=== PATIENT | male | born 1940 | race African-American/Black ===

== ENCOUNTER 2017-02-27 02:44 | Inpatient (IN) | payer MEDICARE, MEDICAID ==
[~2017-02-27] VITALS: Ht 185.4 cm; Wt 87.1 kg
[2017-02-27] VITALS (53 sets, daily range): BP systolic 84–146; BP diastolic 45–101
[~2017-02-27 02:44] MED LIST: ASPI-1159 PO; NEBI20TA2 PO; SIMV10TA6 PO
[2017-02-27] MEDS ORDERED: SODIUM CHLORIDE 0.9% 1,000 ML IV ONE ×3 (03:26→06:13)
[2017-02-27] MEDS ORDERED: IPRATROPIUM BROMIDE (0.02%) 0.5MG/2.5ML NEB HHN STA (03:26)
[2017-02-27] MEDS ORDERED: METHYLPREDNISOLONE SOD SUCC 125 MG/2 ML VIAL IV STA (03:26)
[2017-02-27] MEDS ORDERED: ALBUTEROL (0.083%) 2.5MG/3ML NEB HHN STA (03:26)
[2017-02-27] MEDS ORDERED: AZITHROMYCIN 500 MG in DEXT 5% WATER 250 ML IV ONE (03:30)
[2017-02-27] MEDS ORDERED: CEFTRIAXONE 1 G PREMIX 50 ML IV ONE (03:30)
[2017-02-27 03:49] LABS: BASOPHILS % 0.3 % (0.0-2.0); HEMATOCRIT. 48.7 % (42.0-52.0); HEMOGLOBIN. 15.6 g/dL (14.0-18.0); LYMPHOCYTES % 22.1 % (20.0-50.0); MEAN CORPUSCULAR HEMOGLOBIN 29.1 pg (28.0-32.0); MEAN CORPUSCULAR VOLUME 90.4 fL (80.0-94.0); MEAN PLATELET VOLUME 9.1 fl (7.4-10.4); MONOCYTES % 12.1 % (2.0-8.0); NEUTROPHILS % 65.5 % (40.0-76.0); PLATELET 182 x1000/uL (130-400); RED BLOOD CELL COUNT 5.38 mill/uL (4.7-6.1); RED CELL DISTRIBUTION WIDTH 15.6 % (11.6-14.6)
[2017-02-27] MEDS ORDERED: ALBUTEROL (0.5%) 2.5MG/0.5ML NEB HHN ONE (03:49)
[2017-02-27] MEDS: METHYLPREDNISOLONE SOD SUCC 125 MG/2 ML VIAL IV SCH ×4 (04:00→21:08)
[2017-02-27 04:08] LABS: BG BASE EXCESS -0.2 mmol/L (-2.0-2.0); BG CARBOXYHEMOGLOBIN 1.7 % (0.5-1.5); BG FRACTION INSPIRED OXYGEN 40; BG HCO3 ACT 35.4 mmol/L (22.0-26.0); BG METHEMOGLOBIN 0.7 % (0.0-1.5); BG OXYGEN SATURATION 96.9 % (92.0-98.5); BG OXYHEMOGLOBIN 94.6 % (94.0-97.0); BG PCO2 131.6 mmHg (35.0-45.0); BG PH 7.048 (7.350-7.450); BG PO2 128.5 mmHg (75.0-100.0); BG SAMPLE SITE RIGHT RADIAL; BG TOTAL HEMOGLOBIN 16.3 g/dL (12.0-18.0); BG VENT MODE NASAL CANNULA
[2017-02-27 04:09] LABS: CHLORIDE 99 mEq/L (98-107)
[2017-02-27] MEDS ORDERED: ETOMIDATE 2MG/ML 10ML VIAL IV ONE ×2 (04:45→06:00)
[2017-02-27] MEDS ORDERED: SUCCINYLCHOLINE CHLORIDE 200MG/10ML IV ONE ×2 (04:45→06:00)
[2017-02-27] MEDS ORDERED: PROPOFOL 10MG/ML 100ML 100 ML IV ONE (04:45)
[2017-02-27 05:06] LABS: CLARITY URINE CLOUDY (CLEAR); COLOR URINE YELLOW (YELLOW); KETONES URINE NEGATIVE (NEGATIVE); LEUKOCYTE ESTERASE URINE NEGATIVE (NEGATIVE); NITRITE URINE NEGATIVE (NEGATIVE); OCCULT BLOOD URINE 1+ (NEGATIVE); PROTEIN URINE 2+ (NEGATIVE); SPECIFIC GRAVITY URINE 1.019 (1.005-1.030)
[2017-02-27 05:27] LABS: BG BASE EXCESS 1.1 mmol/L (-2.0-2.0); BG CARBOXYHEMOGLOBIN 1.3 % (0.5-1.5); BG DEOXYHEMOGLOBIN 3.1 % (0.0-5.0); BG FRACTION INSPIRED OXYGEN 50; BG HCO3 ACT 30.9 mmol/L (22.0-26.0); BG METHEMOGLOBIN 0.5 % (0.0-1.5); BG OXYGEN SATURATION 96.8 % (92.0-98.5); BG OXYHEMOGLOBIN 95.1 % (94.0-97.0); BG PCO2 72.8 mmHg (35.0-45.0); BG PH 7.246 (7.350-7.450); BG PO2 106.6 mmHg (75.0-100.0); BG SAMPLE SITE RIGHT FEMORAL; BG TIDAL VOLUME(mL) 500 mL; BG TOTAL HEMOGLOBIN 15.9 g/dL (12.0-18.0); BG VENT MODE VENT - A/C; BG VENT RATE 18 set
[2017-02-27] MEDS ORDERED: PHENYLEPHRINE 10 MG in DEXT 5% WATER 249 ML IV STA ×2 (06:13→06:29)
[2017-02-27] MEDS ORDERED: PHENYLEPHRINE 10 MG in SODIUM CHLORIDE 0.9% 249 ML IV ONE (06:45)
[2017-02-27] MEDS ORDERED: SODIUM CHLORIDE 0.9% IV ONE (06:45)
[2017-02-27] MEDS ORDERED: PHENYLEPHRINE IV ONE (06:45)
[2017-02-27] MEDS ORDERED: CLONIDINE 0.1MG TABLET PO PRN (07:45)
[2017-02-27] MEDS ORDERED: ONDANSETRON HCL 4MG/2ML INJ IV PRN (07:45)
[2017-02-27] MEDS ORDERED: DIPHENHYDRAMINE 50MG/ML VIAL IV PRN (07:45)
[2017-02-27] MEDS ORDERED: MAGNESIUM/ALUMINUM HYDROXIDE/SIMETHICONE 30ML UDC PO PRN (07:45)
[2017-02-27] MEDS ORDERED: NA PHOS,M-B/NA PHOS,DI-BA ENEMA 118ML PR PRN (07:45)
[2017-02-27] MEDS ORDERED: AZITHROMYCIN 500 MG in DEXT 5% WATER 250 ML IV SCH (07:45)
[2017-02-27] MEDS ORDERED: IPRATROPIUM/ALBUTEROL 0.5-3(2.5)MG/3ML NEB INH PRN (07:45)
[2017-02-27] MEDS ORDERED: LORAZEPAM 2MG/ML CPJ IV PRN (07:45)
[2017-02-27] MEDS ORDERED: DOCUSATE SODIUM 100MG CAPSULE PO PRN (07:45)
[2017-02-27] MEDS ORDERED: ACETAMINOPHEN 325MG TABLET PO PRN (07:45)
[2017-02-27] MEDS ORDERED: CEFTRIAXONE 1 G PREMIX 50 ML IV SCH (09:00)
[2017-02-27] MEDS ORDERED: PHENYLEPHRINE 10 MG in SODIUM CHLORIDE 0.9% 249 ML IV NR (09:30)
[2017-02-27] MEDS ORDERED: PROPOFOL 10MG/ML 100ML 100 ML IV PRN (09:45)
[2017-02-27] MEDS ORDERED: ASPIRIN 325MG EC TABLET PO SCH (10:15)
[2017-02-27] MEDS ORDERED: DEXT 5%/LACTATED RINGERS 1,000 ML IV SCH (10:35)
[2017-02-27] MEDS ORDERED: ENOXAPARIN 80MG/0.8ML SYR SUBCUT SCH (10:45)
[2017-02-27 11:24] LABS: *AMPHETAMINES SCREEN URINE NEGATIVE (NEGATIVE); *BARBITURATES SCREEN URINE NEGATIVE (NEGATIVE); *BENZODIAZEPINES SCREEN URINE NEGATIVE (NEGATIVE); *COCAINE SCREEN URINE NEGATIVE (NEGATIVE); CANNABINOID URINE SCREEN NEGATIVE (NEGATIVE); METHADONE URINE SCREEN NEGATIVE (NEGATIVE); OPIATES URINE SCREEN NEGATIVE (NEGATIVE); PHENCYCLIDINE URINE SCREEN NEGATIVE (NEGATIVE)
[2017-02-27] MEDS: FAMOTIDINE 20MG/2ML VIAL IV SCH (11:29)
[2017-02-27] MEDS ORDERED: IPRATROPIUM/ALBUTEROL 0.5-3(2.5)MG/3ML NEB HHN SCH (12:00)
[2017-02-27] MEDS ORDERED: ACETAMINOPHEN 650MG/20.3ML UDC PO PRN (13:00)
[2017-02-27] MEDS: ASPIRIN 325MG TABLET PO SCH (13:56)
[2017-02-27] MEDS ORDERED: PHENYLEPHRINE 10 MG in DEXT 5% WATER 249 ML IV PRN (14:00)
[2017-02-27 15:27] LABS: BASOPHILS % 0.3 % (0.0-2.0); HEMATOCRIT. 42.3 % (42.0-52.0); HEMOGLOBIN. 13.5 g/dL (14.0-18.0); LYMPHOCYTES % 9.9 % (20.0-50.0); MEAN CORPUSCULAR HEMOGLOBIN 28.5 pg (28.0-32.0); MEAN PLATELET VOLUME 9.2 fl (7.4-10.4); MONOCYTES % 3.7 % (2.0-8.0); NEUTROPHILS % 86.1 % (40.0-76.0); PLATELET 172 x1000/uL (130-400); RED BLOOD CELL COUNT 4.75 mill/uL (4.7-6.1); RED CELL DISTRIBUTION WIDTH 15.8 % (11.6-14.6)
[2017-02-27 15:31] LABS: BG BASE EXCESS 1.4 mmol/L (-2.0-2.0); BG CARBOXYHEMOGLOBIN 0.3 % (0.5-1.5); BG DEOXYHEMOGLOBIN 1.2 % (0.0-5.0); BG FRACTION INSPIRED OXYGEN 40; BG HCO3 ACT 24.3 mmol/L (22.0-26.0); BG METHEMOGLOBIN 0.3 % (0.0-1.5); BG OXYGEN SATURATION 98.8 % (92.0-98.5); BG OXYHEMOGLOBIN 98.2 % (94.0-97.0); BG PCO2 33.5 mmHg (35.0-45.0); BG PH 7.478 (7.350-7.450); BG PO2 130.9 mmHg (75.0-100.0); BG SAMPLE SITE RIGHT RADIAL; BG TIDAL VOLUME(mL) 550 mL; BG TOTAL HEMOGLOBIN 14.7 g/dL (12.0-18.0); BG VENT MODE VENT - A/C; BG VENT RATE 20 set
[2017-02-27 15:33] LABS: D-DIMER 1.43 mg/L FEU (<0.50); INR 1.1
[2017-02-27 15:47] LABS: CHLORIDE 107 mEq/L (98-107)
[2017-02-27 16:03] LABS: CREATINE KINASE 1272 IU/L (39-308); CREATINE KINASE MB FRACTION 21.7 ng/mL (0.5-3.6)
[2017-02-27] MEDS: DEXT 5%/0.45% NACL 1000ML 1,000 ML IV SCH (18:01)
[2017-02-27] MEDS: IPRATROPIUM/ALBUTEROL 0.5-3(2.5)MG/3ML NEB HHN SCH (20:38)
[2017-02-27] MEDS: ENOXAPARIN 80MG/0.8ML SYR SUBCUT SCH (21:06)
[2017-02-27] MEDS: ATORVASTATIN CALCIUM 40MG TABLET PO SCH (21:06)
[2017-02-28] VITALS (70 sets, daily range): BP systolic 92–138; BP diastolic 47–86
[2017-02-28 00:02] LABS: CREATINE KINASE MB FRACTION 22.9 ng/mL (0.5-3.6)
[2017-02-28] MEDS: IPRATROPIUM/ALBUTEROL 0.5-3(2.5)MG/3ML NEB HHN SCH ×6 (00:17→20:19)
[2017-02-28] MEDS: METHYLPREDNISOLONE SOD SUCC 125 MG/2 ML VIAL IV SCH (05:07)
[2017-02-28] MEDS: CEFTRIAXONE 1 G PREMIX 50 ML IV SCH (05:08)
[2017-02-28 06:06] LABS: BASOPHILS % 0.2 % (0.0-2.0); EOSINOPHILS % 0.1 % (0.0-5.0); HEMATOCRIT. 41.5 % (42.0-52.0); HEMOGLOBIN. 13.4 g/dL (14.0-18.0); LYMPHOCYTES % 10.6 % (20.0-50.0); MEAN CORPUSCULAR HEMOGLOBIN 28.6 pg (28.0-32.0); MEAN CORPUSCULAR VOLUME 88.8 fL (80.0-94.0); MEAN PLATELET VOLUME 9.4 fl (7.4-10.4); MONOCYTES % 5.3 % (2.0-8.0); NEUTROPHILS % 83.8 % (40.0-76.0); PLATELET 174 x1000/uL (130-400); RED BLOOD CELL COUNT 4.68 mill/uL (4.7-6.1); RED CELL DISTRIBUTION WIDTH 16.1 % (11.6-14.6)
[2017-02-28] MEDS: AZITHROMYCIN 500 MG in SODIUM CHLORIDE 0.9% 250 ML IV SCH (06:39)
[2017-02-28] MEDS: DEXT 5%/0.45% NACL 1000ML 1,000 ML IV SCH ×2 (06:39→18:58)
[2017-02-28 07:30] LABS: BG BASE EXCESS -0.6 mmol/L (-2.0-2.0); BG CARBOXYHEMOGLOBIN 0.3 % (0.5-1.5); BG DEOXYHEMOGLOBIN 3.8 % (0.0-5.0); BG HCO3 ACT 23.7 mmol/L (22.0-26.0); BG METHEMOGLOBIN 0.5 % (0.0-1.5); BG OXYGEN SATURATION 96.2 % (92.0-98.5); BG OXYHEMOGLOBIN 95.4 % (94.0-97.0); BG PCO2 38.4 mmHg (35.0-45.0); BG PH 7.409 (7.350-7.450); BG PO2 88.6 mmHg (75.0-100.0); BG SAMPLE SITE RIGHT RADIAL; BG TIDAL VOLUME(mL) 550 mL; BG TOTAL HEMOGLOBIN 14.5 g/dL (12.0-18.0); BG VENT MODE VENT - A/C; BG VENT RATE 20 set
[2017-02-28 08:19] LABS: CHLORIDE 105 mEq/L (98-107)
[2017-02-28] MEDS: ENOXAPARIN 80MG/0.8ML SYR SUBCUT SCH (08:51)
[2017-02-28] MEDS: FAMOTIDINE 20MG/2ML VIAL IV SCH ×2 (08:51→22:08)
[2017-02-28] MEDS: ASPIRIN 325MG TABLET PO SCH (08:51)
[2017-02-28] MEDS ORDERED: DEXTROSE 50% WATER 50ML SYRINGE IV PRN (09:15)
[2017-02-28] MEDS: BLOOD SUGAR DIAGNOSTIC STRIP TEST SCH ×3 (11:24→21:00)
[2017-02-28] MEDS: NEBIVOLOL HCL 5 MG TABLET PO SCH (11:37)
[2017-02-28] MEDS: INSULIN LISPRO 100 UNITS/ML SUBCUT SCH ×3 (11:40→21:00)
[2017-02-28 12:56] LABS: CREATINE KINASE 1991 IU/L (39-308)
[2017-02-28] MEDS ORDERED: MAGNESIUM 1 G PREMIX 100 ML IV NR (13:00)
[2017-02-28] MEDS: METHYLPREDNISOLONE SOD SUCC 40 MG/ML VIAL IV SCH ×2 (13:23→22:08)
[2017-02-28] MEDS: ACETYLCYSTEINE 200MG/ML 20% VIAL 4ML PO SCH ×2 (13:52→21:00)
[2017-02-28] MEDS ORDERED: IOHEXOL-350 100 ML BOTTLE ONE (14:41)
[2017-02-28] MEDS: PROPOFOL 10MG/ML 100ML 100 ML IV PRN (15:54)
[2017-02-28] MEDS: BUDESONIDE 0.5MG/2ML NEB HHN SCH (20:19)
[2017-02-28] MEDS: ATORVASTATIN CALCIUM 40MG TABLET PO SCH (22:08)
[2017-03-01] VITALS (82 sets, daily range): BP systolic 81–152; BP diastolic 50–104
[2017-03-01] MEDS: IPRATROPIUM/ALBUTEROL 0.5-3(2.5)MG/3ML NEB HHN SCH ×6 (00:53→20:17)
[2017-03-01] MEDS: PROPOFOL 10MG/ML 100ML 100 ML IV PRN (01:11)
[2017-03-01 05:46] LABS: HEMATOCRIT. 39.7 % (42.0-52.0); HEMOGLOBIN. 13.1 g/dL (14.0-18.0); MEAN CORPUSCULAR HEMOGLOBIN 29.1 pg (28.0-32.0); MEAN CORPUSCULAR VOLUME 88.5 fL (80.0-94.0); MEAN PLATELET VOLUME 9.3 fl (7.4-10.4); PLATELET 196 x1000/uL (130-400); RED BLOOD CELL COUNT 4.49 mill/uL (4.7-6.1); RED CELL DISTRIBUTION WIDTH 15.9 % (11.6-14.6)
[2017-03-01] MEDS: CEFTRIAXONE 1 G PREMIX 50 ML IV SCH (05:46)
[2017-03-01] MEDS: METHYLPREDNISOLONE SOD SUCC 40 MG/ML VIAL IV SCH ×3 (05:46→22:11)
[2017-03-01] MEDS: AZITHROMYCIN 500 MG in SODIUM CHLORIDE 0.9% 250 ML IV SCH (05:47)
[2017-03-01] MEDS: BLOOD SUGAR DIAGNOSTIC STRIP TEST SCH ×3 (06:15→17:26)
[2017-03-01] MEDS: INSULIN LISPRO 100 UNITS/ML SUBCUT SCH ×3 (06:17→17:00)
[2017-03-01 07:05] LABS: CHLORIDE 108 mEq/L (98-107); PHOSPHORUS 2.5 mg/dL (2.5-4.9)
[2017-03-01 08:28] LABS: BG BASE EXCESS -1.1 mmol/L (-2.0-2.0); BG DEOXYHEMOGLOBIN 2.4 % (0.0-5.0); BG FRACTION INSPIRED OXYGEN 40; BG HCO3 ACT 23.9 mmol/L (22.0-26.0); BG METHEMOGLOBIN 0.4 % (0.0-1.5); BG OXYGEN SATURATION 97.6 % (92.0-98.5); BG OXYHEMOGLOBIN 97.2 % (94.0-97.0); BG PCO2 41.3 mmHg (35.0-45.0); BG PH 7.381 (7.350-7.450); BG PO2 108.9 mmHg (75.0-100.0); BG SAMPLE SITE RIGHT RADIAL; BG TIDAL VOLUME(mL) 550 mL; BG TOTAL HEMOGLOBIN 13.9 g/dL (12.0-18.0); BG VENT MODE VENT - A/C; BG VENT RATE 16 set
[2017-03-01] MEDS: BUDESONIDE 0.5MG/2ML NEB HHN SCH ×2 (08:50→20:17)
[2017-03-01] MEDS: FAMOTIDINE 20MG/2ML VIAL IV SCH ×2 (09:25→20:29)
[2017-03-01] MEDS: NEBIVOLOL HCL 5 MG TABLET PO SCH (09:25)
[2017-03-01] MEDS: ASPIRIN 325MG TABLET PO SCH (09:26)
[2017-03-01] MEDS ORDERED: SODIUM CHLORIDE 0.9% 250 ML IV ONE (09:30)
[2017-03-01] MEDS ORDERED: POTASSIUM CHLORIDE 20MEQ/PACKET PO NR (09:45)
[2017-03-01 12:30] LABS: BG BASE EXCESS -1.4 mmol/L (-2.0-2.0); BG CARBOXYHEMOGLOBIN 0.3 % (0.5-1.5); BG DEOXYHEMOGLOBIN 4.8 % (0.0-5.0); BG FRACTION INSPIRED OXYGEN 40; BG HCO3 ACT 27.8 mmol/L (22.0-26.0); BG METHEMOGLOBIN 0.3 % (0.0-1.5); BG OXYGEN SATURATION 95.2 % (92.0-98.5); BG OXYHEMOGLOBIN 94.6 % (94.0-97.0); BG PCO2 66.8 mmHg (35.0-45.0); BG PH 7.237 (7.350-7.450); BG PO2 89.7 mmHg (75.0-100.0); BG PRESSURE SUPPORT 8; BG SAMPLE SITE RIGHT RADIAL; BG TOTAL HEMOGLOBIN 14.9 g/dL (12.0-18.0); BG VENT MODE VENT - CPAP
[2017-03-01 12:49] LABS: PLATELET ESTIMATE NORMAL
[2017-03-01] MEDS ORDERED: PROPOFOL 10MG/ML 100ML 100 ML IV PRN (14:15)
[2017-03-01] MEDS: ATORVASTATIN CALCIUM 40MG TABLET PO SCH (20:29)
[2017-03-01] MEDS: ACETYLCYSTEINE 100MG/ML 10% VIAL 4ML PO SCH (20:30)
[2017-03-02] VITALS (79 sets, daily range): BP systolic 95–148; BP diastolic 45–92
[2017-03-02] MEDS: IPRATROPIUM/ALBUTEROL 0.5-3(2.5)MG/3ML NEB HHN SCH ×6 (00:17→20:22)
[2017-03-02] MEDS: METHYLPREDNISOLONE SOD SUCC 40 MG/ML VIAL IV SCH ×3 (05:03→21:29)
[2017-03-02] MEDS: BLOOD SUGAR DIAGNOSTIC STRIP TEST SCH ×4 (05:12→18:00)
[2017-03-02] MEDS: INSULIN LISPRO 100 UNITS/ML SUBCUT SCH ×4 (05:12→18:00)
[2017-03-02] MEDS ORDERED: CEFTRIAXONE 1,000 MG in SODIUM CHLORIDE 0.9% 50 ML IV SCH (05:30)
[2017-03-02 06:17] LABS: HEMATOCRIT. 41.5 % (42.0-52.0); HEMOGLOBIN. 13.4 g/dL (14.0-18.0); MEAN CORPUSCULAR HEMOGLOBIN 28.8 pg (28.0-32.0); MEAN CORPUSCULAR VOLUME 88.9 fL (80.0-94.0); MEAN PLATELET VOLUME 9.2 fl (7.4-10.4); PLATELET 224 x1000/uL (130-400); RED BLOOD CELL COUNT 4.66 mill/uL (4.7-6.1)
[2017-03-02 06:42] LABS: CHLORIDE 110 mEq/L (98-107); PHOSPHORUS 2.5 mg/dL (2.5-4.9)
[2017-03-02] MEDS: BUDESONIDE 0.5MG/2ML NEB HHN SCH ×2 (07:15→20:22)
[2017-03-02] MEDS ORDERED: LIDOCAINE HCL 1% 20ML VIAL (Pyxis) INJ ONE ×2 (07:22→10:24)
[2017-03-02] MEDS ORDERED: IODIXANOL 320MG/ML 100 ML BOTTLE IV ONE (07:23)
[2017-03-02 07:36] LABS: BG BASE EXCESS 1.7 mmol/L (-2.0-2.0); BG DEOXYHEMOGLOBIN 4.9 % (0.0-5.0); BG FRACTION INSPIRED OXYGEN 40; BG HCO3 ACT 25.7 mmol/L (22.0-26.0); BG METHEMOGLOBIN 0.3 % (0.0-1.5); BG OXYGEN SATURATION 95.1 % (92.0-98.5); BG OXYHEMOGLOBIN 94.8 % (94.0-97.0); BG PCO2 38.6 mmHg (35.0-45.0); BG PH 7.442 (7.350-7.450); BG SAMPLE SITE RIGHT RADIAL; BG TIDAL VOLUME(mL) 550 mL; BG TOTAL HEMOGLOBIN 13.8 g/dL (12.0-18.0); BG VENT MODE VENT - A/C; BG VENT RATE 16 set
[2017-03-02] MEDS ORDERED: FENTANYL CITRATE/PF 50MCG/ML 2ML VIAL ONE (08:41)
[2017-03-02] MEDS ORDERED: MIDAZOLAM HCL 2 MG/2 ML VIAL ONE (08:41)
[2017-03-02] MEDS ORDERED: IOHEXOL-300 100 ML BOTTLE ONE (08:57)
[2017-03-02] MEDS: ACETYLCYSTEINE 100MG/ML 10% VIAL 4ML PO SCH (09:00)
[2017-03-02] MEDS: NEBIVOLOL HCL 5 MG TABLET PO SCH ×2 (09:00→11:05)
[2017-03-02] MEDS: ASPIRIN 81MG TABLET PO SCH (09:00)
[2017-03-02] MEDS: FAMOTIDINE 20MG/2ML VIAL IV SCH ×2 (09:00→11:06)
[2017-03-02] MEDS ORDERED: ASPIRIN 325MG TABLET ONE (09:15)
[2017-03-02] MEDS ORDERED: CLOPIDOGREL 75MG TABLET ONE (09:15)
[2017-03-02] MEDS ORDERED: ONDANSETRON HCL 4MG/2ML INJ IV PRN (09:45)
[2017-03-02] MEDS ORDERED: ACETAMINOPHEN 325MG TABLET PO PRN (09:45)
[2017-03-02] MEDS ORDERED: ATROPINE SULFATE 1MG/10ML SYR IV PRN (09:45)
[2017-03-02] MEDS ORDERED: SODIUM CHLORIDE 0.45% 1,000 ML IV ONE (10:30)
[2017-03-02] MEDS ORDERED: HEPARIN SODIUM 1,000 UNIT/1ML VIAL IV ONE (11:23)
[2017-03-02] MEDS: PROPOFOL 10MG/ML 100ML 100 ML IV PRN (12:03)
[2017-03-02 12:45] LABS: PLATELET ESTIMATE NORMAL
[2017-03-02] MEDS: ATORVASTATIN CALCIUM 40MG TABLET PO SCH (21:29)
[2017-03-03] VITALS (43 sets, daily range): BP systolic 91–131; BP diastolic 55–76
[2017-03-03] MEDS: BLOOD SUGAR DIAGNOSTIC STRIP TEST SCH ×4 (00:19→18:51)
[2017-03-03] MEDS: IPRATROPIUM/ALBUTEROL 0.5-3(2.5)MG/3ML NEB HHN SCH ×6 (00:24→20:02)
[2017-03-03] MEDS: METHYLPREDNISOLONE SOD SUCC 40 MG/ML VIAL IV SCH ×3 (05:21→21:10)
[2017-03-03] MEDS: INSULIN LISPRO 100 UNITS/ML SUBCUT SCH ×4 (05:34→18:00)
[2017-03-03 05:42] LABS: HEMATOCRIT. 41.5 % (42.0-52.0); MEAN CORPUSCULAR HEMOGLOBIN 28.1 pg (28.0-32.0); MEAN CORPUSCULAR VOLUME 89.5 fL (80.0-94.0); MEAN PLATELET VOLUME 9.1 fl (7.4-10.4); PLATELET 208 x1000/uL (130-400); RED BLOOD CELL COUNT 4.64 mill/uL (4.7-6.1); RED CELL DISTRIBUTION WIDTH 15.9 % (11.6-14.6)
[2017-03-03 06:04] LABS: CHLORIDE 110 mEq/L (98-107)
[2017-03-03] MEDS: PROPOFOL 10MG/ML 100ML 100 ML IV PRN (06:36)
[2017-03-03 07:11] LABS: PLATELET ESTIMATE NORMAL
[2017-03-03 08:17] LABS: BG BASE EXCESS 3.1 mmol/L (-2.0-2.0); BG CARBOXYHEMOGLOBIN 0.6 % (0.5-1.5); BG DEOXYHEMOGLOBIN 2.2 % (0.0-5.0); BG FRACTION INSPIRED OXYGEN 40; BG HCO3 ACT 30.4 mmol/L (22.0-26.0); BG METHEMOGLOBIN 0.4 % (0.0-1.5); BG OXYGEN SATURATION 97.8 % (92.0-98.5); BG OXYHEMOGLOBIN 96.8 % (94.0-97.0); BG PCO2 58.3 mmHg (35.0-45.0); BG PH 7.335 (7.350-7.450); BG PO2 108.6 mmHg (75.0-100.0); BG SAMPLE SITE RIGHT RADIAL; BG TIDAL VOLUME(mL) 550 mL; BG TOTAL HEMOGLOBIN 13.8 g/dL (12.0-18.0); BG VENT MODE VENT - A/C; BG VENT RATE 12 set
[2017-03-03] MEDS: BUDESONIDE 0.5MG/2ML NEB HHN SCH (09:32)
[2017-03-03] MEDS: CLOPIDOGREL 75MG TABLET PO SCH (10:17)
[2017-03-03] MEDS: ASPIRIN 81MG TABLET PO SCH (10:18)
[2017-03-03] MEDS: FAMOTIDINE 20MG/2ML VIAL IV SCH ×2 (10:18→21:10)
[2017-03-03 13:50] LABS: BG BASE EXCESS 1.4 mmol/L (-2.0-2.0); BG CARBOXYHEMOGLOBIN 0.5 % (0.5-1.5); BG FRACTION INSPIRED OXYGEN 35; BG HCO3 ACT 32.8 mmol/L (22.0-26.0); BG METHEMOGLOBIN 0.5 % (0.0-1.5); BG OXYGEN SATURATION 89.9 % (92.0-98.5); BG PCO2 87.5 mmHg (35.0-45.0); BG PH 7.192 (7.350-7.450); BG PO2 70.7 mmHg (75.0-100.0); BG PRESSURE SUPPORT 8; BG SAMPLE SITE RIGHT RADIAL; BG TOTAL HEMOGLOBIN 15.6 g/dL (12.0-18.0); BG VENT MODE VENT - CPAP
[2017-03-03] MEDS: METOCLOPRAMIDE HCL 10MG/2ML VIAL IV SCH ×2 (14:06→18:53)
[2017-03-03 16:11] LABS: BG BASE EXCESS 3.1 mmol/L (-2.0-2.0); BG CARBOXYHEMOGLOBIN 0.3 % (0.5-1.5); BG DEOXYHEMOGLOBIN 3.9 % (0.0-5.0); BG FRACTION INSPIRED OXYGEN 40; BG HCO3 ACT 31.2 mmol/L (22.0-26.0); BG METHEMOGLOBIN 0.5 % (0.0-1.5); BG OXYGEN SATURATION 96.1 % (92.0-98.5); BG OXYHEMOGLOBIN 95.3 % (94.0-97.0); BG PCO2 63.2 mmHg (35.0-45.0); BG PH 7.311 (7.350-7.450); BG PO2 88.5 mmHg (75.0-100.0); BG PRESSURE SUPPORT 10; BG SAMPLE SITE RIGHT RADIAL; BG TIDAL VOLUME(mL) 550 mL; BG TOTAL HEMOGLOBIN 14.4 g/dL (12.0-18.0); BG VENT MODE VENT - SIMV; BG VENT RATE 10 set
[2017-03-03] MEDS: ATORVASTATIN CALCIUM 40MG TABLET PO SCH (21:10)
[2017-03-04] VITALS (50 sets, daily range): BP systolic 90–144; BP diastolic 58–79
[2017-03-04] MEDS: BLOOD SUGAR DIAGNOSTIC STRIP TEST SCH ×5 (00:30→23:11)
[2017-03-04] MEDS: METOCLOPRAMIDE HCL 10MG/2ML VIAL IV SCH ×5 (00:33→23:10)
[2017-03-04] MEDS: IPRATROPIUM/ALBUTEROL 0.5-3(2.5)MG/3ML NEB HHN SCH ×6 (04:11→20:51)
[2017-03-04 05:55] LABS: HEMOGLOBIN. 13.7 g/dL (14.0-18.0); MEAN CORPUSCULAR HEMOGLOBIN 28.5 pg (28.0-32.0); MEAN CORPUSCULAR VOLUME 89.4 fL (80.0-94.0); MEAN PLATELET VOLUME 9.1 fl (7.4-10.4); PLATELET 223 x1000/uL (130-400); RED CELL DISTRIBUTION WIDTH 15.8 % (11.6-14.6)
[2017-03-04] MEDS: INSULIN LISPRO 100 UNITS/ML SUBCUT SCH ×5 (06:00→23:11)
[2017-03-04] MEDS: METHYLPREDNISOLONE SOD SUCC 40 MG/ML VIAL IV SCH ×3 (06:00→21:15)
[2017-03-04 06:34] LABS: CHLORIDE 110 mEq/L (98-107); PHOSPHORUS 3.2 mg/dL (2.5-4.9)
[2017-03-04 07:41] LABS: BG BASE EXCESS 2.4 mmol/L (-2.0-2.0); BG CARBOXYHEMOGLOBIN 0.5 % (0.5-1.5); BG DEOXYHEMOGLOBIN 2.9 % (0.0-5.0); BG HCO3 ACT 30.9 mmol/L (22.0-26.0); BG METHEMOGLOBIN 0.5 % (0.0-1.5); BG OXYGEN SATURATION 97.1 % (92.0-98.5); BG OXYHEMOGLOBIN 96.1 % (94.0-97.0); BG PCO2 65.6 mmHg (35.0-45.0); BG PH 7.291 (7.350-7.450); BG PO2 100.7 mmHg (75.0-100.0); BG SAMPLE SITE RIGHT RADIAL; BG TIDAL VOLUME(mL) 550 mL; BG TOTAL HEMOGLOBIN 14.5 g/dL (12.0-18.0); BG VENT MODE VENT - SIMV; BG VENT RATE 10 set
[2017-03-04] MEDS: NEBIVOLOL HCL 5 MG TABLET PO SCH (09:00)
[2017-03-04] MEDS: FAMOTIDINE 20MG/2ML VIAL IV SCH ×2 (09:30→20:18)
[2017-03-04] MEDS: CLOPIDOGREL 75MG TABLET PO SCH (09:30)
[2017-03-04] MEDS: ASPIRIN 81MG TABLET PO SCH (09:31)
[2017-03-04 10:41] LABS: PLATELET ESTIMATE NORMAL
[2017-03-04 14:10] LABS: BG BASE EXCESS 3.1 mmol/L (-2.0-2.0); BG DEOXYHEMOGLOBIN 4.9 % (0.0-5.0); BG HCO3 ACT 33.1 mmol/L (22.0-26.0); BG METHEMOGLOBIN 0.3 % (0.0-1.5); BG OXYGEN SATURATION 95.1 % (92.0-98.5); BG OXYHEMOGLOBIN 94.8 % (94.0-97.0); BG PCO2 77.1 mmHg (35.0-45.0); BG PO2 84.4 mmHg (75.0-100.0); BG SAMPLE SITE RIGHT RADIAL; BG TIDAL VOLUME(mL) 550 mL; BG TOTAL HEMOGLOBIN 14.8 g/dL (12.0-18.0); BG VENT MODE VENT - SIMV; BG VENT RATE 6 set
[2017-03-04] MEDS: THEOPHYLLINE ANHYDROUS 80 MG/15 ML 120ML PO SCH ×2 (14:38→21:16)
[2017-03-04] MEDS ORDERED: PROPOFOL 10MG/ML 100ML 100 ML IV PRN (14:45)
[2017-03-04 17:03] LABS: BG BASE EXCESS 3.8 mmol/L (-2.0-2.0); BG CARBOXYHEMOGLOBIN 0.4 % (0.5-1.5); BG DEOXYHEMOGLOBIN 0.8 % (0.0-5.0); BG HCO3 ACT 30.6 mmol/L (22.0-26.0); BG METHEMOGLOBIN 0.5 % (0.0-1.5); BG OXYGEN SATURATION 99.2 % (92.0-98.5); BG OXYHEMOGLOBIN 98.3 % (94.0-97.0); BG PH 7.363 (7.350-7.450); BG PO2 183.8 mmHg (75.0-100.0); BG SAMPLE SITE RIGHT RADIAL; BG TIDAL VOLUME(mL) 550 mL; BG TOTAL HEMOGLOBIN 14.3 g/dL (12.0-18.0); BG VENT MODE VENT - A/C; BG VENT RATE 12 set
[2017-03-04] MEDS: ATORVASTATIN CALCIUM 40MG TABLET PO SCH (20:18)
[2017-03-05] VITALS (106 sets, daily range): BP systolic 73–177; BP diastolic 46–95
[2017-03-05] MEDS: IPRATROPIUM/ALBUTEROL 0.5-3(2.5)MG/3ML NEB HHN SCH ×6 (00:31→20:02)
[2017-03-05] MEDS: BLOOD SUGAR DIAGNOSTIC STRIP TEST SCH ×3 (05:33→17:52)
[2017-03-05] MEDS: INSULIN LISPRO 100 UNITS/ML SUBCUT SCH ×3 (05:33→17:52)
[2017-03-05] MEDS: THEOPHYLLINE ANHYDROUS 80 MG/15 ML 120ML PO SCH ×3 (05:33→22:00)
[2017-03-05] MEDS: METHYLPREDNISOLONE SOD SUCC 40 MG/ML VIAL IV SCH ×3 (05:33→21:33)
[2017-03-05] MEDS: METOCLOPRAMIDE HCL 10MG/2ML VIAL IV SCH ×3 (05:33→17:52)
[2017-03-05 06:04] LABS: HEMATOCRIT. 41.7 % (42.0-52.0); HEMOGLOBIN. 13.1 g/dL (14.0-18.0); MEAN CORPUSCULAR HEMOGLOBIN 28.3 pg (28.0-32.0); MEAN CORPUSCULAR VOLUME 89.8 fL (80.0-94.0); MEAN PLATELET VOLUME 9.2 fl (7.4-10.4); PLATELET 240 x1000/uL (130-400); RED BLOOD CELL COUNT 4.64 mill/uL (4.7-6.1); RED CELL DISTRIBUTION WIDTH 15.8 % (11.6-14.6)
[2017-03-05 06:51] LABS: CHLORIDE 109 mEq/L (98-107)
[2017-03-05 07:59] LABS: BG BASE EXCESS 2.5 mmol/L (-2.0-2.0); BG DEOXYHEMOGLOBIN 3.3 % (0.0-5.0); BG FRACTION INSPIRED OXYGEN 40; BG HCO3 ACT 28.5 mmol/L (22.0-26.0); BG METHEMOGLOBIN 0.2 % (0.0-1.5); BG OXYGEN SATURATION 96.7 % (92.0-98.5); BG OXYHEMOGLOBIN 96.5 % (94.0-97.0); BG PCO2 49.2 mmHg (35.0-45.0); BG PO2 89.3 mmHg (75.0-100.0); BG SAMPLE SITE RIGHT RADIAL; BG TIDAL VOLUME(mL) 550 mL; BG TOTAL HEMOGLOBIN 13.9 g/dL (12.0-18.0); BG VENT MODE VENT - A/C; BG VENT RATE 12 set
[2017-03-05] MEDS: FAMOTIDINE 20MG/2ML VIAL IV SCH ×2 (09:05→21:27)
[2017-03-05] MEDS: ASPIRIN 81MG TABLET PO SCH (09:05)
[2017-03-05] MEDS: NEBIVOLOL HCL 5 MG TABLET PO SCH (09:05)
[2017-03-05] MEDS: CLOPIDOGREL 75MG TABLET PO SCH (09:05)
[2017-03-05 09:28] LABS: PLATELET ESTIMATE NORMAL
[2017-03-05] MEDS: DOCUSATE SODIUM SUGAR FREE 100MG/10ML UDC PO PRN (10:34)
[2017-03-05 13:08] LABS: BG CARBOXYHEMOGLOBIN 0.4 % (0.5-1.5); BG FRACTION INSPIRED OXYGEN 40; BG HCO3 ACT 37.2 mmol/L (22.0-26.0); BG METHEMOGLOBIN 0.5 % (0.0-1.5); BG OXYGEN SATURATION 92.9 % (92.0-98.5); BG OXYHEMOGLOBIN 92.1 % (94.0-97.0); BG PCO2 104.8 mmHg (35.0-45.0); BG PH 7.168 (7.350-7.450); BG PO2 80.6 mmHg (75.0-100.0); BG PRESSURE SUPPORT 12; BG SAMPLE SITE RIGHT RADIAL; BG TIDAL VOLUME(mL) 550 mL; BG TOTAL HEMOGLOBIN 16.2 g/dL (12.0-18.0); BG VENT MODE VENT - SIMV; BG VENT RATE 6 set
[2017-03-05] MEDS ORDERED: PROPOFOL 10MG/ML 100ML 100 ML IV PRN (13:30)
[2017-03-05] MEDS: ATORVASTATIN CALCIUM 40MG TABLET PO SCH (21:28)
[2017-03-06] VITALS (87 sets, daily range): BP systolic 94–141; BP diastolic 48–114
[2017-03-06] MEDS: IPRATROPIUM/ALBUTEROL 0.5-3(2.5)MG/3ML NEB HHN SCH ×6 (00:25→20:26)
[2017-03-06] MEDS: METOCLOPRAMIDE HCL 10MG/2ML VIAL IV SCH ×5 (00:33→23:44)
[2017-03-06] MEDS: BLOOD SUGAR DIAGNOSTIC STRIP TEST SCH ×4 (00:38→23:51)
[2017-03-06] MEDS: INSULIN LISPRO 100 UNITS/ML SUBCUT SCH ×5 (06:00→23:51)
[2017-03-06] MEDS: THEOPHYLLINE ANHYDROUS 80 MG/15 ML 120ML PO SCH ×3 (06:35→21:31)
[2017-03-06] MEDS: METHYLPREDNISOLONE SOD SUCC 40 MG/ML VIAL IV SCH ×2 (06:35→17:31)
[2017-03-06 08:02] LABS: BG BASE EXCESS 10.1 mmol/L (-2.0-2.0); BG CARBOXYHEMOGLOBIN 0.1 % (0.5-1.5); BG DEOXYHEMOGLOBIN 2.7 % (0.0-5.0); BG FRACTION INSPIRED OXYGEN 40; BG HCO3 ACT 35.5 mmol/L (22.0-26.0); BG METHEMOGLOBIN 0.5 % (0.0-1.5); BG OXYGEN SATURATION 97.3 % (92.0-98.5); BG OXYHEMOGLOBIN 96.7 % (94.0-97.0); BG PCO2 50.3 mmHg (35.0-45.0); BG PH 7.466 (7.350-7.450); BG PO2 93.7 mmHg (75.0-100.0); BG SAMPLE SITE RIGHT RADIAL; BG TIDAL VOLUME(mL) 550 mL; BG TOTAL HEMOGLOBIN 13.8 g/dL (12.0-18.0); BG VENT MODE VENT - A/C; BG VENT RATE 14 set
[2017-03-06] MEDS: FAMOTIDINE 20MG/2ML VIAL IV SCH ×2 (08:34→21:31)
[2017-03-06] MEDS: ASPIRIN 81MG TABLET PO SCH (08:34)
[2017-03-06] MEDS: CLOPIDOGREL 75MG TABLET PO SCH (08:34)
[2017-03-06] MEDS: NEBIVOLOL HCL 5 MG TABLET PO SCH (08:35)
[2017-03-06] MEDS ORDERED: PROPOFOL 10MG/ML 100ML 100 ML IV PRN (09:29)
[2017-03-06 14:08] LABS: BG BASE EXCESS 9.7 mmol/L (-2.0-2.0); BG FRACTION INSPIRED OXYGEN 40; BG HCO3 ACT 37.4 mmol/L (22.0-26.0); BG METHEMOGLOBIN 0.5 % (0.0-1.5); BG OXYHEMOGLOBIN 96.5 % (94.0-97.0); BG PCO2 64.1 mmHg (35.0-45.0); BG PH 7.384 (7.350-7.450); BG PO2 96.7 mmHg (75.0-100.0); BG PRESSURE SUPPORT 12; BG SAMPLE SITE RIGHT BRACHIAL; BG TIDAL VOLUME(mL) 550 mL; BG TOTAL HEMOGLOBIN 14.3 g/dL (12.0-18.0); BG VENT MODE VENT - SIMV; BG VENT RATE 10 set
[2017-03-06] MEDS ORDERED: METHYLPREDNISOLONE SOD SUCC 125 MG/2 ML VIAL IV ONE (14:15)
[2017-03-06] MEDS ORDERED: METHYLPREDNISOLONE SOD SUCC 500 MG in SODIUM CHLORIDE 0.9% 100 ML IV NR (15:00)
[2017-03-06] MEDS ORDERED: GADOBENATE DIMEGLUMINE 529 MG/ML 10ML IV ONE (16:26)
[2017-03-06] MEDS: ATORVASTATIN CALCIUM 40MG TABLET PO SCH (21:31)
[2017-03-07] VITALS (55 sets, daily range): BP systolic 91–139; BP diastolic 32–87
[2017-03-07] MEDS: IPRATROPIUM/ALBUTEROL 0.5-3(2.5)MG/3ML NEB HHN SCH ×6 (00:10→20:42)
[2017-03-07 05:36] LABS: HEMATOCRIT. 44.1 % (42.0-52.0); HEMOGLOBIN. 13.8 g/dL (14.0-18.0); MEAN CORPUSCULAR HEMOGLOBIN 28.2 pg (28.0-32.0); MEAN CORPUSCULAR VOLUME 90.1 fL (80.0-94.0); MEAN PLATELET VOLUME 9.1 fl (7.4-10.4); PLATELET 247 x1000/uL (130-400); RED BLOOD CELL COUNT 4.89 mill/uL (4.7-6.1); RED CELL DISTRIBUTION WIDTH 16.1 % (11.6-14.6)
[2017-03-07] MEDS: THEOPHYLLINE ANHYDROUS 80 MG/15 ML 120ML PO SCH ×3 (06:13→21:18)
[2017-03-07] MEDS: METOCLOPRAMIDE HCL 10MG/2ML VIAL IV SCH ×3 (06:13→17:17)
[2017-03-07] MEDS: METHYLPREDNISOLONE SOD SUCC 40 MG/ML VIAL IV SCH ×2 (06:13→17:17)
[2017-03-07] MEDS: BLOOD SUGAR DIAGNOSTIC STRIP TEST SCH ×3 (06:14→18:00)
[2017-03-07] MEDS: INSULIN LISPRO 100 UNITS/ML SUBCUT SCH ×3 (06:14→18:00)
[2017-03-07 06:20] LABS: CHLORIDE 108 mEq/L (98-107); PHOSPHORUS 4.5 mg/dL (2.5-4.9)
[2017-03-07 07:52] LABS: BG BASE EXCESS 4.5 mmol/L (-2.0-2.0); BG CARBOXYHEMOGLOBIN 0.2 % (0.5-1.5); BG DEOXYHEMOGLOBIN 2.2 % (0.0-5.0); BG FRACTION INSPIRED OXYGEN 40; BG HCO3 ACT 31.9 mmol/L (22.0-26.0); BG OXYGEN SATURATION 97.8 % (92.0-98.5); BG OXYHEMOGLOBIN 97.6 % (94.0-97.0); BG PCO2 59.2 mmHg (35.0-45.0); BG PH 7.349 (7.350-7.450); BG PO2 117.5 mmHg (75.0-100.0); BG PRESSURE SUPPORT 12; BG SAMPLE SITE RIGHT BRACHIAL; BG TIDAL VOLUME(mL) 550 mL; BG TOTAL HEMOGLOBIN 14.5 g/dL (12.0-18.0); BG VENT MODE VENT - SIMV; BG VENT RATE 10 set
[2017-03-07 08:32] LABS: PLATELET ESTIMATE NORMAL
[2017-03-07] MEDS: FAMOTIDINE 20MG/2ML VIAL IV SCH ×2 (08:41→21:18)
[2017-03-07] MEDS: DOCUSATE SODIUM SUGAR FREE 100MG/10ML UDC PO PRN (08:41)
[2017-03-07] MEDS: ASPIRIN 81MG TABLET PO SCH (08:41)
[2017-03-07] MEDS: NEBIVOLOL HCL 5 MG TABLET PO SCH (08:42)
[2017-03-07] MEDS: CLOPIDOGREL 75MG TABLET PO SCH (08:42)
[2017-03-07 13:23] LABS: BG BASE EXCESS 8.4 mmol/L (-2.0-2.0); BG CARBOXYHEMOGLOBIN 0.3 % (0.5-1.5); BG DEOXYHEMOGLOBIN 4.8 % (0.0-5.0); BG HCO3 ACT 36.9 mmol/L (22.0-26.0); BG METHEMOGLOBIN 0.1 % (0.0-1.5); BG OXYGEN SATURATION 95.2 % (92.0-98.5); BG OXYHEMOGLOBIN 94.8 % (94.0-97.0); BG PCO2 69.2 mmHg (35.0-45.0); BG PH 7.345 (7.350-7.450); BG PO2 80.1 mmHg (75.0-100.0); BG SAMPLE SITE RIGHT RADIAL; BG TIDAL VOLUME(mL) 550 mL; BG TOTAL HEMOGLOBIN 14.5 g/dL (12.0-18.0); BG VENT MODE VENT - SIMV; BG VENT RATE 8 set
[2017-03-07] MEDS: GUAIFENESIN 200MG/10ML SUGAR FREE UDC PO PRN (16:43)
[2017-03-07] MEDS: MORPHINE SULFATE 4 MG/ML CPJ (NOT FOR IM USE) IV PRN (17:19)
[2017-03-07] MEDS: ATORVASTATIN CALCIUM 40MG TABLET PO SCH (21:18)
[2017-03-08] VITALS (49 sets, daily range): BP systolic 94–140; BP diastolic 50–79
[2017-03-08] MEDS: IPRATROPIUM/ALBUTEROL 0.5-3(2.5)MG/3ML NEB HHN SCH ×7 (00:16→23:58)
[2017-03-08] MEDS: BLOOD SUGAR DIAGNOSTIC STRIP TEST SCH ×5 (00:26→23:27)
[2017-03-08] MEDS: METOCLOPRAMIDE HCL 10MG/2ML VIAL IV SCH ×6 (02:23→23:27)
[2017-03-08 05:43] LABS: HEMOGLOBIN. 14.8 g/dL (14.0-18.0); MEAN CORPUSCULAR HEMOGLOBIN 28.3 pg (28.0-32.0); MEAN CORPUSCULAR VOLUME 90.2 fL (80.0-94.0); MEAN PLATELET VOLUME 9.5 fl (7.4-10.4); PLATELET 254 x1000/uL (130-400); RED BLOOD CELL COUNT 5.21 mill/uL (4.7-6.1); RED CELL DISTRIBUTION WIDTH 15.8 % (11.6-14.6)
[2017-03-08] MEDS: INSULIN LISPRO 100 UNITS/ML SUBCUT SCH ×5 (06:00→23:27)
[2017-03-08] MEDS: METHYLPREDNISOLONE SOD SUCC 40 MG/ML VIAL IV SCH ×2 (06:09→17:38)
[2017-03-08] MEDS: THEOPHYLLINE ANHYDROUS 80 MG/15 ML 120ML PO SCH ×3 (06:09→21:06)
[2017-03-08 06:23] LABS: CHLORIDE 105 mEq/L (98-107); THEOPHYLLINE 7.5 ug/mL (10-20)
[2017-03-08 06:58] LABS: BG BASE EXCESS 10.6 mmol/L (-2.0-2.0); BG CARBOXYHEMOGLOBIN 0.5 % (0.5-1.5); BG DEOXYHEMOGLOBIN 3.2 % (0.0-5.0); BG HCO3 ACT 40.1 mmol/L (22.0-26.0); BG METHEMOGLOBIN 0.3 % (0.0-1.5); BG OXYGEN SATURATION 96.8 % (92.0-98.5); BG PCO2 76.2 mmHg (35.0-45.0); BG PH 7.339 (7.350-7.450); BG PO2 90.9 mmHg (75.0-100.0); BG SAMPLE SITE RIGHT RADIAL; BG TIDAL VOLUME(mL) 550 mL; BG TOTAL HEMOGLOBIN 15.4 g/dL (12.0-18.0); BG VENT MODE VENT - SIMV; BG VENT RATE 8 set
[2017-03-08 07:41] LABS: PLATELET ESTIMATE NORMAL
[2017-03-08] MEDS: NEBIVOLOL HCL 5 MG TABLET PO SCH (08:36)
[2017-03-08] MEDS: ASPIRIN 81MG TABLET PO SCH (08:43)
[2017-03-08] MEDS: CLOPIDOGREL 75MG TABLET PO SCH (08:43)
[2017-03-08] MEDS: FAMOTIDINE 20MG/2ML VIAL IV SCH ×2 (08:43→21:06)
[2017-03-08] MEDS: DOCUSATE SODIUM SUGAR FREE 100MG/10ML UDC PO PRN (08:43)
[2017-03-08] MEDS: MORPHINE SULFATE 4 MG/ML CPJ (NOT FOR IM USE) IV PRN (17:38)
[2017-03-08] MEDS: ATORVASTATIN CALCIUM 40MG TABLET PO SCH (21:05)
[2017-03-09] VITALS (45 sets, daily range): BP systolic 68–134; BP diastolic 38–82
[2017-03-09] MEDS: IPRATROPIUM/ALBUTEROL 0.5-3(2.5)MG/3ML NEB HHN SCH ×5 (03:56→20:21)
[2017-03-09 05:32] LABS: CHLORIDE 105 mEq/L (98-107)
[2017-03-09] MEDS: METOCLOPRAMIDE HCL 10MG/2ML VIAL IV SCH ×3 (05:39→18:01)
[2017-03-09] MEDS: METHYLPREDNISOLONE SOD SUCC 40 MG/ML VIAL IV SCH ×2 (05:39→18:01)
[2017-03-09] MEDS: INSULIN LISPRO 100 UNITS/ML SUBCUT SCH ×4 (05:40→23:57)
[2017-03-09] MEDS: BLOOD SUGAR DIAGNOSTIC STRIP TEST SCH ×4 (05:40→23:57)
[2017-03-09] MEDS: THEOPHYLLINE ANHYDROUS 80 MG/15 ML 120ML PO SCH ×3 (05:40→21:09)
[2017-03-09 05:44] LABS: HEMATOCRIT. 43.7 % (42.0-52.0); MEAN CORPUSCULAR HEMOGLOBIN 28.9 pg (28.0-32.0); MEAN CORPUSCULAR VOLUME 89.9 fL (80.0-94.0); MEAN PLATELET VOLUME 9.3 fl (7.4-10.4); PLATELET 208 x1000/uL (130-400); RED BLOOD CELL COUNT 4.86 mill/uL (4.7-6.1); RED CELL DISTRIBUTION WIDTH 15.9 % (11.6-14.6)
[2017-03-09 07:06] LABS: PLATELET ESTIMATE NORMAL
[2017-03-09] MEDS: FAMOTIDINE 20MG/2ML VIAL IV SCH ×2 (08:30→21:09)
[2017-03-09] MEDS: NEBIVOLOL HCL 5 MG TABLET PO SCH (08:30)
[2017-03-09] MEDS: CLOPIDOGREL 75MG TABLET PO SCH (08:30)
[2017-03-09] MEDS: ASPIRIN 81MG TABLET PO SCH (08:30)
[2017-03-09 08:59] LABS: BG BASE EXCESS 6.4 mmol/L (-2.0-2.0); BG CARBOXYHEMOGLOBIN 0.7 % (0.5-1.5); BG DEOXYHEMOGLOBIN 2.8 % (0.0-5.0); BG FRACTION INSPIRED OXYGEN 40; BG HCO3 ACT 34.1 mmol/L (22.0-26.0); BG METHEMOGLOBIN 0.4 % (0.0-1.5); BG OXYGEN SATURATION 97.2 % (92.0-98.5); BG OXYHEMOGLOBIN 96.1 % (94.0-97.0); BG PCO2 61.8 mmHg (35.0-45.0); BG PH 7.359 (7.350-7.450); BG PO2 98.2 mmHg (75.0-100.0); BG PRESSURE SUPPORT 12; BG SAMPLE SITE RIGHT RADIAL; BG TIDAL VOLUME(mL) 550 mL; BG TOTAL HEMOGLOBIN 14.6 g/dL (12.0-18.0); BG VENT MODE VENT - SIMV; BG VENT RATE 10 set
[2017-03-09 14:35] LABS: BG BASE EXCESS 9.3 mmol/L (-2.0-2.0); BG CARBOXYHEMOGLOBIN 0.9 % (0.5-1.5); BG FRACTION INSPIRED OXYGEN 40; BG HCO3 ACT 38.9 mmol/L (22.0-26.0); BG METHEMOGLOBIN 0.5 % (0.0-1.5); BG OXYGEN SATURATION 95.9 % (92.0-98.5); BG OXYHEMOGLOBIN 94.6 % (94.0-97.0); BG PCO2 77.5 mmHg (35.0-45.0); BG PH 7.319 (7.350-7.450); BG PO2 86.6 mmHg (75.0-100.0); BG SAMPLE SITE RIGHT RADIAL; BG TIDAL VOLUME(mL) 550 mL; BG VENT MODE VENT - SIMV; BG VENT RATE 6 set
[2017-03-09] MEDS: ATORVASTATIN CALCIUM 40MG TABLET PO SCH (21:08)
[2017-03-10] VITALS (44 sets, daily range): BP systolic 82–152; BP diastolic 40–98
[2017-03-10] MEDS: METOCLOPRAMIDE HCL 10MG/2ML VIAL IV SCH ×4 (00:14→18:00)
[2017-03-10] MEDS: IPRATROPIUM/ALBUTEROL 0.5-3(2.5)MG/3ML NEB HHN SCH ×6 (00:30→20:53)
[2017-03-10] MEDS: MORPHINE SULFATE 4 MG/ML CPJ (NOT FOR IM USE) IV PRN (03:27)
[2017-03-10 05:32] LABS: HEMATOCRIT. 46.4 % (42.0-52.0); HEMOGLOBIN. 14.4 g/dL (14.0-18.0); MEAN CORPUSCULAR HEMOGLOBIN 28.1 pg (28.0-32.0); MEAN CORPUSCULAR VOLUME 90.6 fL (80.0-94.0); PLATELET 225 x1000/uL (130-400); RED BLOOD CELL COUNT 5.12 mill/uL (4.7-6.1); RED CELL DISTRIBUTION WIDTH 15.7 % (11.6-14.6)
[2017-03-10] MEDS ORDERED: PROPOFOL 10MG/ML 100ML 100 ML IV PRN (06:00)
[2017-03-10] MEDS: INSULIN LISPRO 100 UNITS/ML SUBCUT SCH ×3 (06:00→16:45)
[2017-03-10 06:23] LABS: CHLORIDE 104 mEq/L (98-107)
[2017-03-10] MEDS: METHYLPREDNISOLONE SOD SUCC 40 MG/ML VIAL IV SCH ×2 (06:44→18:08)
[2017-03-10] MEDS: THEOPHYLLINE ANHYDROUS 80 MG/15 ML 120ML PO SCH (06:46)
[2017-03-10] MEDS: BLOOD SUGAR DIAGNOSTIC STRIP TEST SCH ×3 (06:54→16:45)
[2017-03-10] MEDS: ASPIRIN 81MG TABLET PO SCH (08:13)
[2017-03-10] MEDS: CLOPIDOGREL 75MG TABLET PO SCH (08:13)
[2017-03-10] MEDS: FAMOTIDINE 20MG/2ML VIAL IV SCH ×2 (08:13→20:54)
[2017-03-10] MEDS: NEBIVOLOL HCL 5 MG TABLET PO SCH (08:14)
[2017-03-10 09:16] LABS: PLATELET ESTIMATE NORMAL
[2017-03-10 09:23] LABS: BG BASE EXCESS 14.2 mmol/L (-2.0-2.0); BG CARBOXYHEMOGLOBIN 0.5 % (0.5-1.5); BG DEOXYHEMOGLOBIN 1.6 % (0.0-5.0); BG FRACTION INSPIRED OXYGEN 40; BG HCO3 ACT 41.7 mmol/L (22.0-26.0); BG METHEMOGLOBIN 0.5 % (0.0-1.5); BG OXYGEN SATURATION 98.4 % (92.0-98.5); BG OXYHEMOGLOBIN 97.4 % (94.0-97.0); BG PCO2 61.7 mmHg (35.0-45.0); BG PH 7.448 (7.350-7.450); BG PO2 113.9 mmHg (75.0-100.0); BG SAMPLE SITE RIGHT RADIAL; BG TIDAL VOLUME(mL) 550 mL; BG TOTAL HEMOGLOBIN 16.4 g/dL (12.0-18.0); BG VENT MODE VENT - A/C; BG VENT RATE 12 set
[2017-03-10] MEDS ORDERED: LORAZEPAM 2MG/ML CPJ IV NR (10:15)
[2017-03-10 10:21] LABS: BG BASE EXCESS 12.6 mmol/L (-2.0-2.0); BG CARBOXYHEMOGLOBIN 0.4 % (0.5-1.5); BG DEOXYHEMOGLOBIN 4.1 % (0.0-5.0); BG FRACTION INSPIRED OXYGEN 45; BG HCO3 ACT 43.6 mmol/L (22.0-26.0); BG METHEMOGLOBIN 0.5 % (0.0-1.5); BG OXYGEN SATURATION 95.9 % (92.0-98.5); BG PCO2 88.3 mmHg (35.0-45.0); BG PH 7.311 (7.350-7.450); BG PO2 88.9 mmHg (75.0-100.0); BG PRESSURE SUPPORT 8; BG SAMPLE SITE RIGHT RADIAL; BG TOTAL HEMOGLOBIN 15.4 g/dL (12.0-18.0); BG VENT MODE VENT - CPAP
[2017-03-10] MEDS: QUETIAPINE FUMARATE 25MG TABLET PO SCH ×2 (10:43→20:54)
[2017-03-10] MEDS: DOCUSATE SODIUM SUGAR FREE 100MG/10ML UDC NG SCH (11:00)
[2017-03-10] MEDS: ATORVASTATIN CALCIUM 40MG TABLET PO SCH (20:54)
[2017-03-11] VITALS (45 sets, daily range): BP systolic 108–169; BP diastolic 49–98
[2017-03-11] MEDS: BLOOD SUGAR DIAGNOSTIC STRIP TEST SCH ×4 (00:23→18:00)
[2017-03-11] MEDS: IPRATROPIUM/ALBUTEROL 0.5-3(2.5)MG/3ML NEB HHN SCH ×6 (00:46→20:36)
[2017-03-11] MEDS: INSULIN LISPRO 100 UNITS/ML SUBCUT SCH ×4 (05:56→18:00)
[2017-03-11] MEDS: METOCLOPRAMIDE HCL 10MG/2ML VIAL IV SCH ×2 (06:00)
[2017-03-11] MEDS: METHYLPREDNISOLONE SOD SUCC 40 MG/ML VIAL IV SCH ×2 (06:03→19:01)
[2017-03-11 06:55] LABS: HEMATOCRIT. 47.7 % (42.0-52.0); HEMOGLOBIN. 14.9 g/dL (14.0-18.0); MEAN CORPUSCULAR HEMOGLOBIN 28.7 pg (28.0-32.0); MEAN CORPUSCULAR VOLUME 91.6 fL (80.0-94.0); MEAN PLATELET VOLUME 10.2 fl (7.4-10.4); PLATELET 203 x1000/uL (130-400); RED BLOOD CELL COUNT 5.21 mill/uL (4.7-6.1); RED CELL DISTRIBUTION WIDTH 15.4 % (11.6-14.6)
[2017-03-11 08:35] LABS: BG BASE EXCESS 13.5 mmol/L (-2.0-2.0); BG CARBOXYHEMOGLOBIN 0.9 % (0.5-1.5); BG DEOXYHEMOGLOBIN 5.1 % (0.0-5.0); BG FRACTION INSPIRED OXYGEN 28; BG HCO3 ACT 44.2 mmol/L (22.0-26.0); BG METHEMOGLOBIN 0.5 % (0.0-1.5); BG OXYGEN SATURATION 94.8 % (92.0-98.5); BG OXYHEMOGLOBIN 93.5 % (94.0-97.0); BG PCO2 85.5 mmHg (35.0-45.0); BG PH 7.331 (7.350-7.450); BG PO2 77.6 mmHg (75.0-100.0); BG SAMPLE SITE RIGHT BRACHIAL; BG TOTAL HEMOGLOBIN 15.7 g/dL (12.0-18.0); BG VENT MODE MASK - AEROSOL
[2017-03-11] MEDS: CLOPIDOGREL 75MG TABLET PO SCH (08:41)
[2017-03-11] MEDS: ASPIRIN 81MG TABLET PO SCH (08:41)
[2017-03-11] MEDS: DOCUSATE SODIUM SUGAR FREE 100MG/10ML UDC NG SCH (08:41)
[2017-03-11] MEDS: FAMOTIDINE 20MG/2ML VIAL IV SCH (08:41)
[2017-03-11] MEDS: NEBIVOLOL HCL 5 MG TABLET PO SCH (08:42)
[2017-03-11] MEDS: QUETIAPINE FUMARATE 25MG TABLET PO SCH ×2 (08:42→21:24)
[2017-03-11 10:17] LABS: CHLORIDE 108 mEq/L (98-107); PHOSPHORUS 3.7 mg/dL (2.5-4.9)
[2017-03-11 13:53] LABS: PLATELET ESTIMATE NORMAL
[2017-03-11 14:56] LABS: BG BASE EXCESS 13.7 mmol/L (-2.0-2.0); BG CARBOXYHEMOGLOBIN 0.6 % (0.5-1.5); BG DEOXYHEMOGLOBIN 9.3 % (0.0-5.0); BG FRACTION INSPIRED OXYGEN 28; BG HCO3 ACT 41.7 mmol/L (22.0-26.0); BG METHEMOGLOBIN 0.5 % (0.0-1.5); BG OXYGEN SATURATION 90.6 % (92.0-98.5); BG OXYHEMOGLOBIN 89.6 % (94.0-97.0); BG PH 7.425 (7.350-7.450); BG PO2 58.2 mmHg (75.0-100.0); BG SAMPLE SITE RIGHT BRACHIAL; BG TOTAL HEMOGLOBIN 15.9 g/dL (12.0-18.0); BG VENT MODE NASAL CANNULA
[2017-03-11] MEDS: ATORVASTATIN CALCIUM 40MG TABLET PO SCH (21:24)
[2017-03-12] VITALS (33 sets, daily range): BP systolic 92–180; BP diastolic 50–101
[2017-03-12] MEDS: IPRATROPIUM/ALBUTEROL 0.5-3(2.5)MG/3ML NEB HHN SCH ×6 (00:32→20:18)
[2017-03-12] MEDS: BLOOD SUGAR DIAGNOSTIC STRIP TEST SCH ×5 (00:51→23:15)
[2017-03-12 05:50] LABS: HEMATOCRIT. 47.8 % (42.0-52.0); MEAN CORPUSCULAR HEMOGLOBIN 28.4 pg (28.0-32.0); MEAN CORPUSCULAR VOLUME 90.7 fL (80.0-94.0); MEAN PLATELET VOLUME 10.3 fl (7.4-10.4); PLATELET 171 x1000/uL (130-400); RED BLOOD CELL COUNT 5.27 mill/uL (4.7-6.1); RED CELL DISTRIBUTION WIDTH 15.5 % (11.6-14.6)
[2017-03-12] MEDS: INSULIN LISPRO 100 UNITS/ML SUBCUT SCH ×5 (06:00→23:15)
[2017-03-12] MEDS: METHYLPREDNISOLONE SOD SUCC 40 MG/ML VIAL IV SCH ×2 (06:03→17:37)
[2017-03-12 06:17] LABS: CHLORIDE 106 mEq/L (98-107)
[2017-03-12] MEDS: NEBIVOLOL HCL 5 MG TABLET PO SCH (09:00)
[2017-03-12] MEDS: QUETIAPINE FUMARATE 25MG TABLET PO SCH ×2 (09:00→20:43)
[2017-03-12 09:05] LABS: BG CARBOXYHEMOGLOBIN 0.9 % (0.5-1.5); BG DEOXYHEMOGLOBIN 8.2 % (0.0-5.0); BG FRACTION INSPIRED OXYGEN 26; BG HCO3 ACT 47.9 mmol/L (22.0-26.0); BG METHEMOGLOBIN 0.4 % (0.0-1.5); BG OXYGEN SATURATION 91.7 % (92.0-98.5); BG OXYHEMOGLOBIN 90.5 % (94.0-97.0); BG PCO2 86.6 mmHg (35.0-45.0); BG PH 7.361 (7.350-7.450); BG PO2 66.2 mmHg (75.0-100.0); BG SAMPLE SITE RIGHT RADIAL; BG TOTAL HEMOGLOBIN 16.2 g/dL (12.0-18.0); BG VENT MODE NASAL CANNULA
[2017-03-12] MEDS: DOCUSATE SODIUM SUGAR FREE 100MG/10ML UDC NG SCH (09:17)
[2017-03-12] MEDS: ASPIRIN 81MG TABLET PO SCH (09:18)
[2017-03-12] MEDS: CLOPIDOGREL 75MG TABLET PO SCH (09:18)
[2017-03-12] MEDS ORDERED: DEXTROSE 5% WATER 1,000 ML IV ONE (10:30)
[2017-03-12 11:53] LABS: PLATELET ESTIMATE NORMAL
[2017-03-12 11:57] LABS: BG BASE EXCESS 10.1 mmol/L (-2.0-2.0); BG BILEVEL POS AIRWAY PRESSURE 15/5; BG CARBOXYHEMOGLOBIN 0.8 % (0.5-1.5); BG DEOXYHEMOGLOBIN 5.1 % (0.0-5.0); BG FRACTION INSPIRED OXYGEN 28; BG HCO3 ACT 37.7 mmol/L (22.0-26.0); BG METHEMOGLOBIN 0.4 % (0.0-1.5); BG OXYGEN SATURATION 94.8 % (92.0-98.5); BG OXYHEMOGLOBIN 93.7 % (94.0-97.0); BG PCO2 61.5 mmHg (35.0-45.0); BG PH 7.405 (7.350-7.450); BG SAMPLE SITE RIGHT RADIAL; BG VENT MODE MASK - BIPAP
[2017-03-12] MEDS: ATORVASTATIN CALCIUM 40MG TABLET PO SCH (20:43)
[2017-03-13] VITALS (25 sets, daily range): BP systolic 85–141; BP diastolic 26–99
[2017-03-13] MEDS: IPRATROPIUM/ALBUTEROL 0.5-3(2.5)MG/3ML NEB HHN SCH ×5 (00:13→21:01)
[2017-03-13] MEDS: METHYLPREDNISOLONE SOD SUCC 40 MG/ML VIAL IV SCH (05:38)
[2017-03-13 05:42] LABS: HEMATOCRIT. 47.7 % (42.0-52.0); HEMOGLOBIN. 14.8 g/dL (14.0-18.0); MEAN CORPUSCULAR HEMOGLOBIN 28.2 pg (28.0-32.0); MEAN CORPUSCULAR VOLUME 90.9 fL (80.0-94.0); MEAN PLATELET VOLUME 10.8 fl (7.4-10.4); PLATELET 168 x1000/uL (130-400); RED BLOOD CELL COUNT 5.25 mill/uL (4.7-6.1); RED CELL DISTRIBUTION WIDTH 15.8 % (11.6-14.6)
[2017-03-13] MEDS: INSULIN LISPRO 100 UNITS/ML SUBCUT SCH ×3 (06:00→17:43)
[2017-03-13] MEDS: BLOOD SUGAR DIAGNOSTIC STRIP TEST SCH ×3 (06:00→17:43)
[2017-03-13 06:21] LABS: CHLORIDE 106 mEq/L (98-107)
[2017-03-13 07:49] LABS: NUCLEATED RED BLOOD CELLS 1 /100 WBC
[2017-03-13 08:04] LABS: PLATELET ESTIMATE NORMAL
[2017-03-13] MEDS: QUETIAPINE FUMARATE 25MG TABLET PO SCH ×2 (08:19→21:05)
[2017-03-13] MEDS: CLOPIDOGREL 75MG TABLET PO SCH (08:19)
[2017-03-13] MEDS: DOCUSATE SODIUM SUGAR FREE 100MG/10ML UDC NG SCH (08:19)
[2017-03-13] MEDS: ASPIRIN 81MG TABLET PO SCH (08:19)
[2017-03-13 08:39] LABS: BG BASE EXCESS 13.3 mmol/L (-2.0-2.0); BG BILEVEL POS AIRWAY PRESSURE ST=15/5; BG CARBOXYHEMOGLOBIN 1.2 % (0.5-1.5); BG DEOXYHEMOGLOBIN 3.6 % (0.0-5.0); BG FRACTION INSPIRED OXYGEN 28; BG HCO3 ACT 40.3 mmol/L (22.0-26.0); BG METHEMOGLOBIN 0.4 % (0.0-1.5); BG OXYGEN SATURATION 96.3 % (92.0-98.5); BG OXYHEMOGLOBIN 94.8 % (94.0-97.0); BG PCO2 59.3 mmHg (35.0-45.0); BG PRESSURE SUPPORT 10; BG SAMPLE SITE LEFT RADIAL; BG TOTAL HEMOGLOBIN 15.6 g/dL (12.0-18.0); BG VENT MODE MASK - BIPAP; BG VENT RATE 18 set
[2017-03-13] MEDS ORDERED: BISACODYL 10MG SUPP PR PRN (11:30)
[2017-03-13] MEDS: BUDESONIDE 0.5MG/2ML NEB HHN SCH (12:04)
[2017-03-13] MEDS: PREDNISONE 20MG TABLET PO SCH (12:24)
[2017-03-13] MEDS: PANTOPRAZOLE SODIUM 40 MG/VIAL IV SCH (12:25)
[2017-03-13 20:12] LABS: VITAMIN B12 SERUM 1564 pg/mL (211-911)
[2017-03-13] MEDS: ATORVASTATIN CALCIUM 40MG TABLET PO SCH (21:05)
[2017-03-14] VITALS (30 sets, daily range): BP systolic 108–135; BP diastolic 48–81
[2017-03-14] MEDS: IPRATROPIUM/ALBUTEROL 0.5-3(2.5)MG/3ML NEB HHN SCH ×6 (00:35→20:57)
[2017-03-14] MEDS: BLOOD SUGAR DIAGNOSTIC STRIP TEST SCH ×5 (00:46→23:23)
[2017-03-14] MEDS: INSULIN LISPRO 100 UNITS/ML SUBCUT SCH ×5 (01:09→23:28)
[2017-03-14 05:32] LABS: HEMATOCRIT. 46.7 % (42.0-52.0); HEMOGLOBIN. 14.6 g/dL (14.0-18.0); MEAN CORPUSCULAR HEMOGLOBIN 28.1 pg (28.0-32.0); PLATELET 143 x1000/uL (130-400); RED BLOOD CELL COUNT 5.19 mill/uL (4.7-6.1); RED CELL DISTRIBUTION WIDTH 15.5 % (11.6-14.6)
[2017-03-14 06:18] LABS: CHLORIDE 101 mEq/L (98-107)
[2017-03-14 07:18] LABS: PLATELET ESTIMATE NORMAL
[2017-03-14 07:49] LABS: BG CARBOXYHEMOGLOBIN 0.8 % (0.5-1.5); BG DEOXYHEMOGLOBIN 2.4 % (0.0-5.0); BG HCO3 ACT 40.4 mmol/L (22.0-26.0); BG METHEMOGLOBIN 0.2 % (0.0-1.5); BG OXYGEN SATURATION 97.6 % (92.0-98.5); BG OXYHEMOGLOBIN 96.6 % (94.0-97.0); BG PCO2 68.4 mmHg (35.0-45.0); BG PH 7.389 (7.350-7.450); BG PO2 106.1 mmHg (75.0-100.0); BG SAMPLE SITE RIGHT RADIAL; BG TOTAL HEMOGLOBIN 15.4 g/dL (12.0-18.0); BG VENT MODE NASAL CANNULA
[2017-03-14] MEDS: PANTOPRAZOLE SODIUM 40 MG/VIAL IV SCH (08:38)
[2017-03-14] MEDS: DOCUSATE SODIUM SUGAR FREE 100MG/10ML UDC NG SCH (08:38)
[2017-03-14] MEDS: QUETIAPINE FUMARATE 25MG TABLET PO SCH ×2 (08:38→20:44)
[2017-03-14] MEDS: GUAIFENESIN 200MG/10ML SUGAR FREE UDC PO PRN ×2 (08:38→17:25)
[2017-03-14] MEDS: ASPIRIN 81MG TABLET PO SCH (08:39)
[2017-03-14] MEDS: PREDNISONE 20MG TABLET PO SCH ×2 (08:39→10:00)
[2017-03-14] MEDS: CLOPIDOGREL 75MG TABLET PO SCH (08:39)
[2017-03-14] MEDS: BUDESONIDE 0.5MG/2ML NEB HHN SCH ×2 (08:52→20:57)
[2017-03-14 10:12] LABS: AChR BLOCKING ABS SERUM 8 % (0-25)
[2017-03-14] MEDS: ATORVASTATIN CALCIUM 40MG TABLET PO SCH (20:44)
[2017-03-15] VITALS (19 sets, daily range): BP systolic 99–139; BP diastolic 49–85
[2017-03-15] MEDS: IPRATROPIUM/ALBUTEROL 0.5-3(2.5)MG/3ML NEB HHN SCH ×6 (00:55→20:38)
[2017-03-15] MEDS: BLOOD SUGAR DIAGNOSTIC STRIP TEST SCH ×4 (05:26→23:48)
[2017-03-15] MEDS: INSULIN LISPRO 100 UNITS/ML SUBCUT SCH ×4 (05:29→23:53)
[2017-03-15] MEDS: CLOPIDOGREL 75MG TABLET PO SCH (08:51)
[2017-03-15] MEDS: GUAIFENESIN 200MG/10ML SUGAR FREE UDC PO PRN (08:51)
[2017-03-15] MEDS: DOCUSATE SODIUM SUGAR FREE 100MG/10ML UDC NG SCH (08:51)
[2017-03-15] MEDS: QUETIAPINE FUMARATE 25MG TABLET PO SCH ×2 (08:52→20:44)
[2017-03-15] MEDS: ASPIRIN 81MG TABLET PO SCH (08:52)
[2017-03-15] MEDS: PREDNISONE 20MG TABLET PO SCH (08:52)
[2017-03-15] MEDS: PANTOPRAZOLE SODIUM 40 MG/VIAL IV SCH (09:02)
[2017-03-15] MEDS: BUDESONIDE 0.5MG/2ML NEB HHN SCH ×2 (09:21→20:39)
[2017-03-15 11:44] LABS: BG BASE EXCESS 10.9 mmol/L (-2.0-2.0); BG CARBOXYHEMOGLOBIN 1.1 % (0.5-1.5); BG DEOXYHEMOGLOBIN 3.6 % (0.0-5.0); BG HCO3 ACT 40.3 mmol/L (22.0-26.0); BG METHEMOGLOBIN 0.2 % (0.0-1.5); BG OXYGEN SATURATION 96.4 % (92.0-98.5); BG OXYHEMOGLOBIN 95.1 % (94.0-97.0); BG PCO2 75.7 mmHg (35.0-45.0); BG PH 7.344 (7.350-7.450); BG PO2 89.5 mmHg (75.0-100.0); BG SAMPLE SITE RIGHT RADIAL; BG TOTAL HEMOGLOBIN 15.1 g/dL (12.0-18.0); BG VENT MODE NASAL CANNULA
[2017-03-15] MEDS: ATORVASTATIN CALCIUM 40MG TABLET PO SCH (20:44)
[2017-03-16] VITALS (12 sets, daily range): BP systolic 98–137; BP diastolic 38–98
[2017-03-16] MEDS: IPRATROPIUM/ALBUTEROL 0.5-3(2.5)MG/3ML NEB HHN SCH ×6 (00:11→20:16)
[2017-03-16] MEDS: INSULIN LISPRO 100 UNITS/ML SUBCUT SCH ×3 (05:43→18:00)
[2017-03-16] MEDS: BLOOD SUGAR DIAGNOSTIC STRIP TEST SCH ×3 (05:43→18:00)
[2017-03-16 07:11] LABS: BASOPHILS % 0.3 % (0.0-2.0); EOSINOPHILS % 1.7 % (0.0-5.0); HEMATOCRIT. 42.6 % (42.0-52.0); HEMOGLOBIN. 13.7 g/dL (14.0-18.0); LYMPHOCYTES % 9.3 % (20.0-50.0); MEAN CORPUSCULAR VOLUME 89.9 fL (80.0-94.0); MEAN PLATELET VOLUME 11.1 fl (7.4-10.4); MONOCYTES % 5.3 % (2.0-8.0); NEUTROPHILS % 83.4 % (40.0-76.0); PLATELET 101 x1000/uL (130-400); RED BLOOD CELL COUNT 4.74 mill/uL (4.7-6.1); RED CELL DISTRIBUTION WIDTH 15.4 % (11.6-14.6)
[2017-03-16] MEDS: BUDESONIDE 0.5MG/2ML NEB HHN SCH (08:02)
[2017-03-16] MEDS: CLOPIDOGREL 75MG TABLET PO SCH (08:31)
[2017-03-16] MEDS: PANTOPRAZOLE SODIUM 40 MG/VIAL IV SCH (08:31)
[2017-03-16] MEDS: QUETIAPINE FUMARATE 25MG TABLET PO SCH ×2 (08:31→20:55)
[2017-03-16] MEDS: DOCUSATE SODIUM SUGAR FREE 100MG/10ML UDC NG SCH (08:31)
[2017-03-16] MEDS: ASPIRIN 81MG TABLET PO SCH (08:31)
[2017-03-16] MEDS: PREDNISONE 20MG TABLET PO SCH (08:31)
[2017-03-16 08:53] LABS: CHLORIDE 98 mEq/L (98-107)
[2017-03-16] MEDS: ATORVASTATIN CALCIUM 40MG TABLET PO SCH (20:55)
[2017-03-17] MEDS ORDERED: PREDNISONE 10MG TABLET PO SCH (09:00)
== END 2017-03-16 22:12 | DRG 853 ==
LOC: ER 02:54 → MICUNO 04:44 → EDBEDREQ 04:46 → EDBEDREQSVC 04:46 → SUPCPDRO 07:36 → ENRESERV 08:59 → MICUSO 03-14 03:26 → 5EST 03-14 18:30
PROVIDERS: ADMIT Internal Medicine; ATTEND Internal Medicine
PROC: 5A1955Z Respiratory Ventilation, Greater than 96 Consecutive Hours (ICD-10-PCS; principal; 2017-02-27)
PROC: 0BH17EZ Insertion of Endotracheal Airway into Trachea, Via Natural or Artificial Opening (ICD-10-PCS; 2017-02-27)
PROC: 02HV33Z Insertion of Infusion Device into Superior Vena Cava, Percutaneous Approach (ICD-10-PCS; 2017-03-02)
PROC: B548ZZA Ultrasonography of Superior Vena Cava, Guidance (ICD-10-PCS; 2017-03-02)
PROC: 027034Z Dilation of Coronary Artery, One Artery with Drug-eluting Intraluminal Device, Percutaneous Approach (ICD-10-PCS; 2017-03-02)
PROC: 4A023N7 Measurement of Cardiac Sampling and Pressure, Left Heart, Percutaneous Approach (ICD-10-PCS; 2017-03-02)
PROC: B2111ZZ Fluoroscopy of Multiple Coronary Arteries using Low Osmolar Contrast (ICD-10-PCS; 2017-03-02)
DX: A41.9 Sepsis, unspecified organism (principal); I21.4 Non-ST elevation (NSTEMI) myocardial infarction; J96.02 Acute respiratory failure with hypercapnia; J96.01 Acute respiratory failure with hypoxia; R65.21 Severe sepsis with septic shock; G93.40 Encephalopathy, unspecified; N17.0 Acute kidney failure with tubular necrosis; E44.0 Moderate protein-calorie malnutrition; I50.30 Unspecified diastolic (congestive) heart failure; I13.0 Hypertensive heart and chronic kidney disease with heart failure and stage 1 through stage 4 chronic kidney disease, or unspecified chronic kidney disease; J44.1 Chronic obstructive pulmonary disease with (acute) exacerbation; E87.0 Hyperosmolality and hypernatremia; E87.3 Alkalosis; N18.9 Chronic kidney disease, unspecified; D69.6 Thrombocytopenia, unspecified; E78.00 Pure hypercholesterolemia, unspecified; E78.5 Hyperlipidemia, unspecified; I25.10 Atherosclerotic heart disease of native coronary artery without angina pectoris; I49.3 Ventricular premature depolarization; R73.9 Hyperglycemia, unspecified; R26.9 Unspecified abnormalities of gait and mobility; I25.2 Old myocardial infarction; Z85.46 Personal history of malignant neoplasm of prostate; Z87.891 Personal history of nicotine dependence; Z95.5 Presence of coronary angioplasty implant and graft; Z79.82 Long term (current) use of aspirin; Z79.899 Other long term (current) drug therapy; Z68.25 Body mass index [BMI] 25.0-25.9, adult
CPT/HCPCS: 31500; 36415; 36556; 36569; 36600; 70553; 71045; 71275; 76770; 76937; 78580; 80048; 80061; 80198; 80305; 81001; 82140; 82375; 82550; 82553; 82607; 82805; 82962; 83036; 83519; 83605; 83735; 83880; 84100; 84443; 84478; 84484; 85347; 85379; 87070; 87804; 92610; 92928; 93005; 93306; 93454; 93922; 93970; 94002; 94003; 94640; 94644; 94660; 96365; 96366; 96367; 96368; 96375; 97116; 97163; 97167; 97530; 99291; A9577; C1725; C1760; C1769; C1887; C1893; C9113; J0330; J0456; J0696; J1200; J1644; J1650; J1815; J2060; J2250; J2270; J2370; J2704; J2765; J2920; J2930; J3010; J3475; J3490; J7030; J7040; J7042; J7050; J7060; J7070; J7512; J7608; J7611; J7620; J7626; Q9967; A4315

== ENCOUNTER 2020-08-29 12:37 | Inpatient (IN) | payer MEDICARE, MEDICAID ==
[~2020-08-29] VITALS: Ht 185.4 cm; Wt 84.9 kg
[~2020-08-29 12:37] MED LIST changes: -ASPI-1159 PO; +ASPI-1497 PO; -SIMV10TA6 PO; +SIMV10TA97 PO
[2020-08-29] MEDS ORDERED: METHYLPREDNISOLONE SOD SUCC 125 MG/2 ML VIAL IV STA (12:59)
[2020-08-29] MEDS ORDERED: IPRATROPIUM BROMIDE (0.02%) 0.5MG/2.5ML NEB HHN STA (12:59)
[2020-08-29] MEDS: ALBUTEROL (0.083%) 2.5MG/3ML NEB HHN SCH (13:10)
[2020-08-29 13:30] LABS: BG BASE EXCESS 4.9 mmol/L (-2.0-2.0); BG CARBOXYHEMOGLOBIN 0.3 % (0.5-1.5); BG DEOXYHEMOGLOBIN 1.2 % (0.0-5.0); BG HCO3 ACT 32.3 mmol/L (22.0-26.0); BG METHEMOGLOBIN 0.2 % (0.0-1.5); BG OXYGEN SATURATION 98.8 % (92.0-98.5); BG OXYHEMOGLOBIN 98.3 % (94.0-97.0); BG PH 7.335 (7.350-7.450); BG PO2 164.3 mmHg (75.0-100.0); BG SAMPLE SITE RIGHT RADIAL; BG TOTAL HEMOGLOBIN 12.2 g/dL (12.0-18.0); BG VENT MODE HHN NEBULIZER
[2020-08-29 13:50] LABS: BASOPHILS % 0.5 % (0.0-2.0); EOSINOPHILS % 1.8 % (0.0-5.0); HEMATOCRIT. 34.1 % (42.0-52.0); HEMOGLOBIN. 11.3 g/dL (14.0-18.0); LYMPHOCYTES % 13.6 % (20.0-50.0); MEAN CORPUSCULAR HEMOGLOBIN 29.2 pg (28.0-32.0); MEAN CORPUSCULAR VOLUME 88.3 fL (80.0-94.0); MEAN PLATELET VOLUME 8.8 fl (7.4-10.4); MONOCYTES % 10.8 % (2.0-8.0); NEUTROPHILS % 73.3 % (40.0-76.0); PLATELET 229 x1000/uL (130-400); RED BLOOD CELL COUNT 3.86 mill/uL (4.7-6.1); RED CELL DISTRIBUTION WIDTH 14.7 % (11.6-14.6)
[2020-08-29 13:55] LABS: CHLORIDE 107 mEq/L (98-107)
[2020-08-29] MEDS ORDERED: AZITHROMYCIN 500 MG in DEXT 5% WATER 250 ML IV SCH (16:00)
[2020-08-29] MEDS ORDERED: CEFTRIAXONE 1 G PREMIX 50 ML IV ONE (16:00)
[2020-08-29] MEDS ORDERED: ONDANSETRON HCL 4MG/2ML INJ IV PRN (20:45)
[2020-08-29] MEDS ORDERED: IPRATROPIUM/ALBUTEROL 0.5-3(2.5)MG/3ML NEB HHN PRN (20:45)
[2020-08-29] MEDS ORDERED: ZOLPIDEM TARTRATE 5MG TABLET PO PRN (20:45)
[2020-08-29] MEDS ORDERED: CLONIDINE 0.1MG TABLET PO PRN (20:45)
[2020-08-29] MEDS ORDERED: GUAIFENESIN 200MG/10ML SUGAR FREE UDC PO PRN (20:45)
[2020-08-29] MEDS ORDERED: MAGNESIUM/ALUMINUM HYDROXIDE/SIMETHICONE 30ML UDC PO PRN (20:45)
[2020-08-29] MEDS ORDERED: MAGNESIUM HYDROXIDE 400MG/5ML 30ML UDC PO PRN (20:45)
[2020-08-29] MEDS ORDERED: ACETAMINOPHEN 325MG TABLET PO PRN ×2 (20:45)
[2020-08-29] MEDS ORDERED: DIPHENHYDRAMINE 50MG/ML VIAL IV PRN (20:45)
[2020-08-29] MEDS ORDERED: ENOXAPARIN 30MG/0.3ML SYR SUBCUT SCH (21:00)
[2020-08-29] MEDS ORDERED: PROMETHAZINE/DEXTROMETHORPHAN 6.25-15MG/5ML BOTTLE 120ML PO PRN (21:00)
[2020-08-29] MEDS ORDERED: LEVOFLOXACIN 500MG PREMIX 100 ML IV SCH (21:00)
[2020-08-29] MEDS: FAMOTIDINE 20MG TABLET PO SCH (21:14)
[2020-08-29] MEDS: GUAIFENESIN 600MG ER TABLET PO SCH (21:15)
[2020-08-29] MEDS: ATORVASTATIN CALCIUM 20MG TABLET PO SCH (21:15)
[2020-08-29] MEDS: METHYLPREDNISOLONE SOD SUCC 125 MG/2 ML VIAL IV SCH (22:26)
[2020-08-29] MEDS: SODIUM CHLORIDE 0.9% INJ 3ML FLUSH IVF SCH (22:33)
[2020-08-29 23:51] VITALS: BP 144/69
[2020-08-30 00:08] VITALS: BP 144/69
[2020-08-30] MEDS ORDERED: FURO20TA4 PO (01:48)
[2020-08-30] MEDS ORDERED: FINA5TAB11 PO (01:51)
[2020-08-30] MEDS ORDERED: TIOT18CA3 IH (01:51)
[2020-08-30] MEDS ORDERED: CLOP75TA33 PO (01:51)
[2020-08-30] MEDS ORDERED: ATOR20TA65 PO (01:51)
[2020-08-30 04:00] VITALS: BP 115/57
[2020-08-30] MEDS: METHYLPREDNISOLONE SOD SUCC 125 MG/2 ML VIAL IV SCH (05:41)
[2020-08-30] MEDS: SODIUM CHLORIDE 0.9% INJ 3ML FLUSH IVF SCH ×3 (05:41→21:13)
[2020-08-30 08:00] VITALS: BP 150/72
[2020-08-30] MEDS: ENOXAPARIN 30MG/0.3ML SYR SUBCUT SCH (08:24)
[2020-08-30] MEDS: CLOPIDOGREL 75MG TABLET PO SCH (08:24)
[2020-08-30] MEDS: ASPIRIN 81MG EC TABLET PO SCH (08:24)
[2020-08-30] MEDS: GUAIFENESIN 600MG ER TABLET PO SCH ×2 (08:25→21:13)
[2020-08-30] MEDS ORDERED: CEFTRIAXONE 1 G PREMIX 50 ML IV SCH (10:00)
[2020-08-30 12:00] VITALS: BP_SYST 127; BP_SYST 136; BP_DIAS 46; BP_DIAS 74
[2020-08-30] MEDS: BUDESONIDE 0.5MG/2ML NEB HHN SCH ×2 (14:40→21:18)
[2020-08-30] MEDS: IPRATROPIUM/ALBUTEROL 0.5-3(2.5)MG/3ML NEB HHN SCH ×2 (14:40→21:18)
[2020-08-30 16:00] VITALS: BP 111/51
[2020-08-30] MEDS: CEFTRIAXONE 1,000 MG in DEXTROSE 5% WATER 50 ML IV SCH (17:22)
[2020-08-30 20:00] VITALS: BP 111/63
[2020-08-30] MEDS: FAMOTIDINE 20MG TABLET PO SCH (21:13)
[2020-08-30] MEDS: ATORVASTATIN CALCIUM 20MG TABLET PO SCH (21:13)
[2020-08-31] VITALS: BP 139/66
[2020-08-31] MEDS: IPRATROPIUM/ALBUTEROL 0.5-3(2.5)MG/3ML NEB HHN SCH ×4 (01:15→21:07)
[2020-08-31 04:00] VITALS: BP 104/51
[2020-08-31] MEDS: SODIUM CHLORIDE 0.9% INJ 3ML FLUSH IVF SCH ×3 (05:22→21:24)
[2020-08-31 07:08] LABS: BASOPHILS % 0.1 % (0.0-2.0); EOSINOPHILS % 0.1 % (0.0-5.0); HEMATOCRIT. 32.5 % (42.0-52.0); HEMOGLOBIN. 10.5 g/dL (14.0-18.0); LYMPHOCYTES % 12.3 % (20.0-50.0); MEAN CORPUSCULAR HEMOGLOBIN 29.2 pg (28.0-32.0); MEAN CORPUSCULAR VOLUME 90.2 fL (80.0-94.0); MONOCYTES % 8.3 % (2.0-8.0); NEUTROPHILS % 79.2 % (40.0-76.0); PLATELET 239 x1000/uL (130-400); RED CELL DISTRIBUTION WIDTH 14.7 % (11.6-14.6)
[2020-08-31] MEDS: ASPIRIN 81MG EC TABLET PO SCH (08:36)
[2020-08-31] MEDS: GUAIFENESIN 600MG ER TABLET PO SCH ×2 (08:36→21:19)
[2020-08-31] MEDS: CLOPIDOGREL 75MG TABLET PO SCH (08:36)
[2020-08-31] MEDS: ENOXAPARIN 30MG/0.3ML SYR SUBCUT SCH (08:37)
[2020-08-31] MEDS: BUDESONIDE 0.5MG/2ML NEB HHN SCH ×2 (09:19→21:35)
[2020-08-31 16:00] VITALS: BP 111/58
[2020-08-31] MEDS: CEFTRIAXONE 1,000 MG in DEXTROSE 5% WATER 50 ML IV SCH (16:18)
[2020-08-31 20:00] VITALS: BP 99/48
[2020-08-31] MEDS: FAMOTIDINE 20MG TABLET PO SCH (21:19)
[2020-08-31] MEDS: ATORVASTATIN CALCIUM 20MG TABLET PO SCH (21:19)
[2020-08-31] MEDS: PREDNISONE 20MG TABLET PO SCH (21:23)
[2020-09-01] VITALS: BP 112/57
[2020-09-01 04:00] VITALS: BP 139/73
[2020-09-01 06:26] LABS: HEMATOCRIT. 36.2 % (42.0-52.0); HEMOGLOBIN. 11.5 g/dL (14.0-18.0); MEAN CORPUSCULAR HEMOGLOBIN 28.6 pg (28.0-32.0); MEAN CORPUSCULAR VOLUME 90.3 fL (80.0-94.0); MEAN PLATELET VOLUME 8.8 fl (7.4-10.4); PLATELET 234 x1000/uL (130-400); RED BLOOD CELL COUNT 4.01 mill/uL (4.7-6.1); RED CELL DISTRIBUTION WIDTH 14.7 % (11.6-14.6)
[2020-09-01] MEDS: SODIUM CHLORIDE 0.9% INJ 3ML FLUSH IVF SCH ×3 (06:30→21:40)
[2020-09-01 06:55] LABS: CHLORIDE 103 mEq/L (98-107)
[2020-09-01] MEDS: BUDESONIDE 0.5MG/2ML NEB HHN SCH ×2 (08:52→20:08)
[2020-09-01] MEDS: IPRATROPIUM/ALBUTEROL 0.5-3(2.5)MG/3ML NEB HHN SCH ×4 (08:55→20:08)
[2020-09-01] MEDS: ENOXAPARIN 30MG/0.3ML SYR SUBCUT SCH (09:20)
[2020-09-01] MEDS: ASPIRIN 81MG EC TABLET PO SCH (09:20)
[2020-09-01] MEDS: CLOPIDOGREL 75MG TABLET PO SCH (09:20)
[2020-09-01] MEDS: PREDNISONE 20MG TABLET PO SCH (09:20)
[2020-09-01] MEDS: GUAIFENESIN 600MG ER TABLET PO SCH ×2 (09:23→21:39)
[2020-09-01] MEDS ORDERED: SODIUM POLYSTYRENE SULFONATE 15 G/60 ML BOT PO NR (10:00)
[2020-09-01 12:00] VITALS: BP 117/68
[2020-09-01 15:08] LABS: PLATELET ESTIMATE NORMAL
[2020-09-01 16:00] VITALS: BP 125/64
[2020-09-01] MEDS: CEFTRIAXONE 1,000 MG in DEXTROSE 5% WATER 50 ML IV SCH (16:49)
[2020-09-01 20:00] VITALS: BP 117/63
[2020-09-01] MEDS ORDERED: BISACODYL 5MG TABLET PO PRN (20:15)
[2020-09-01] MEDS: FAMOTIDINE 20MG TABLET PO SCH (21:39)
[2020-09-01] MEDS: ATORVASTATIN CALCIUM 20MG TABLET PO SCH (21:40)
[2020-09-02] VITALS: BP 118/80
[2020-09-02 04:00] VITALS: BP 108/65
[2020-09-02] MEDS: SODIUM CHLORIDE 0.9% INJ 3ML FLUSH IVF SCH (06:05)
[2020-09-02 06:52] LABS: BASOPHILS % 0.1 % (0.0-2.0); EOSINOPHILS % 0.1 % (0.0-5.0); HEMATOCRIT. 35.3 % (42.0-52.0); HEMOGLOBIN. 11.2 g/dL (14.0-18.0); LYMPHOCYTES % 9.3 % (20.0-50.0); MEAN CORPUSCULAR HEMOGLOBIN 28.5 pg (28.0-32.0); MEAN PLATELET VOLUME 9.1 fl (7.4-10.4); NEUTROPHILS % 82.5 % (40.0-76.0); PLATELET 241 x1000/uL (130-400); RED BLOOD CELL COUNT 3.92 mill/uL (4.7-6.1); RED CELL DISTRIBUTION WIDTH 14.5 % (11.6-14.6)
[2020-09-02 07:06] LABS: CHLORIDE 102 mEq/L (98-107)
[2020-09-02] MEDS ORDERED: P20 PO (07:21)
[2020-09-02] MEDS ORDERED: FLUT1DIS3 INH (07:21)
[2020-09-02] MEDS ORDERED: ALBU90AE INH (07:21)
[2020-09-02] MEDS ORDERED: LEVO500T89 MT (07:23)
[2020-09-02 08:00] VITALS: BP 128/58
[2020-09-02] MEDS: BUDESONIDE 0.5MG/2ML NEB HHN SCH (08:20)
[2020-09-02] MEDS: IPRATROPIUM/ALBUTEROL 0.5-3(2.5)MG/3ML NEB HHN SCH ×2 (08:20→13:13)
[2020-09-02] MEDS ORDERED: ENOXAPARIN 40MG/0.4ML SYR SUBCUT SCH (09:00)
[2020-09-02] MEDS: ASPIRIN 81MG EC TABLET PO SCH (10:57)
[2020-09-02] MEDS: CLOPIDOGREL 75MG TABLET PO SCH (10:58)
[2020-09-02] MEDS: FAMOTIDINE 20MG TABLET PO SCH (10:58)
[2020-09-02] MEDS: PREDNISONE 20MG TABLET PO SCH (11:02)
[2020-09-02] MEDS: GUAIFENESIN 600MG ER TABLET PO SCH (11:02)
[2020-09-02] MEDS ORDERED: FUROSEMIDE 40MG/4ML VIAL IVP NR (11:30)
[2020-09-02 12:00] VITALS: BP 136/72
[2020-09-02 12:24] VITALS: BP 132/88
== END 2020-09-02 14:40 | disposition home or self-care (01) | DRG 193 ==
LOC: ER 12:37 → 7WST 17:44 → ENRESERV 22:32 → 8WST 08-30 08:25
PROVIDERS: ADMIT Internal Medicine; ATTEND Internal Medicine
DX: J18.9 Pneumonia, unspecified organism (principal); J96.01 Acute respiratory failure with hypoxia; J44.1 Chronic obstructive pulmonary disease with (acute) exacerbation; J44.0 Chronic obstructive pulmonary disease with (acute) lower respiratory infection; N17.9 Acute kidney failure, unspecified; I50.40 Unspecified combined systolic (congestive) and diastolic (congestive) heart failure; R65.10 Systemic inflammatory response syndrome (SIRS) of non-infectious origin without acute organ dysfunction; Z85.46 Personal history of malignant neoplasm of prostate; Z87.891 Personal history of nicotine dependence; Z95.5 Presence of coronary angioplasty implant and graft; E78.00 Pure hypercholesterolemia, unspecified; E78.5 Hyperlipidemia, unspecified; I11.0 Hypertensive heart disease with heart failure; I25.10 Atherosclerotic heart disease of native coronary artery without angina pectoris; Z96.642 Presence of left artificial hip joint; Z99.81 Dependence on supplemental oxygen; I27.81 Cor pulmonale (chronic); Z79.82 Long term (current) use of aspirin; Z79.899 Other long term (current) drug therapy
CPT/HCPCS: 36415; 36600; 71045; 80048; 80053; 80061; 82375; 82805; 83735; 83880; 84484; 85025; 87070; 93005; 94640; 99285; C9803; J0456; J0696; J1650; J1956; J2930; J7060; J7512; J7626; U0003; U0005